=== PATIENT | female | born 1985 | race Two or more races ===

== ENCOUNTER 2024-10-03 13:48 | Inpatient (IN) | payer MEDICAID, OTHER ==
[~2024-10-03] VITALS: Ht 170.2 cm; Wt 82.0 kg
[2024-10-03] MEDS: SODIUM CHLORIDE 0.9% 1,850 ML IV ONE (14:30)
--- NOTE | 2024-10-03 14:37 | ED.PDOC ---
Altered Mental Status HPI Comments 39-year-old female with PMHx Colon Cancer brought in by EMS presents with a chief complaint of ALOC. Per EMS, family called due to patient being A/Ox1 and normally at baseline is A/Ox4. Patient is not able to stand or walk but normally is able to. Patient was hypotensive per EMS, and after 500mL of NS was only BP at 70/40. Patient was found to be tachycardic at 141 with some PVCs. Patient is alert and awake, but not answering any questions at this time. 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 Family History Family History: Pt Confused Social History Smoker: Pt Confused Alcohol: Unobtainable Drugs: Pt Confused Lives In: Home Constitutional: denies: chills, diaphoresis, fatigue, fever, malaise, sweats, weakness, others EENTM: denies: blurred vision, double vision, ear bleeding, ear discharge, ear drainage, ear pain, ear ringing, eye pain, eye redness, hearing loss, mouth pain, mouth swelling, nasal discharge, nose bleeding, nose congestion, nose pain, photophobia, tearing, throat pain, throat swelling, voice changes, others Respiratory: denies: cough, hemoptysis, orthopnea, SOB at rest, shortness of breath, SOB with excertion, stridor, wheezing, others Cardiovascular: denies: chest pain, dizzy spells, diaphoresis, Dyspnea on exertion, edema, irregular heart beat, left arm pain, lightheadedness, palpitations, PND, syncope, others Gastrointestinal: denies: abdomen distended, abdominal pain, blood streaked bowels, constipated, diarrhea, dysphagia, difficulty swallowing, hematemesis, melena, nausea, poor appetite, poor fluid intake, rectal bleeding, rectal pain, vomiting, others Genitourinary: denies: abnormal vagina bleeding, burning, dyspareunia, dysuria, flank pain, frequency, hematuria, incontinence, pain, , vagina discharge, urgency, others Neurological: denies: dizziness, fainting, headache, left sided numbness, left sided weakness, numbness, paresthesia, pre-existing deficit, right sided numbness, right sided weakness, seizure, speech problems, tingling, tremors, w eakness, others Musculoskeletal: denies: back pain, gout, joint pain, joint swelling, muscle pain, muscle stiffness, neck pain, others Integumetry: denies: bruises, change in color, change in hair/nails, dryness, laceration, lesions, lumps, rash, wounds, others Allergic/Immunocompromised: denies: Difficulty Healing, Frequent Infections, Hives, Itching, others Hematologic/Lymphatic: denies: anemia, blood clots, easy bleeding, easy bruising, swollen glands, others Endocrine: denies: excessive hunger, excessive sweating, excessive thirst, excessive urination, flushing, intolerance to cold, intolerance to heat, unexplained weight gain, unexplained weight loss, others Psychiatric: denies: anxiety, bipolar disorder, depression, hopeless, panic disorder, schizophrenia, sleepless, suicidal, others Unable to Obtain due to: Altered Mental Status All Other Systems: Reviewed and Negative Physical Exam General Appearance: Moderate Distress, Normal HEENT: Normal ENT Inspection, Pharynx Normal, TMs Normal Neck: Full Range of Motion, Non-Tender, Normal, Normal Inspection Respiratory: Chest Non-Tender, Lungs Clear, No Accessory Muscle Use, No Respiratory Distress, Normal Breath Sounds Cardiovascular: No Edema, No JVD, No Murmur, No Gallop, Tachycardia Breast Exam: Deferred Gastrointestinal: No Organomegaly, Non Tender, No Pulsatile Mass, Normal Bowel Sounds, Soft, Other (ILEOSTOMY IN PLACE) Genitalia: Deferred Pelvic: Deferred Rectal: Deferred Extremities: No calf tenderness, Normal capillary refill, Normal inspection, Normal range of motion, Non-tender, Pedal edema (TRACE) Musculoskeletal : Apperance: Normal Neurologic: Alert, Disoriented, Other (AWAKE, ALERT, BUT NOT ANSWERING QUESTI ONS) Cerebellar Function: Normal Reflexes: Normal Skin: Dry, Mottled, Warm Lymphatic: No Adenopathy EKG EKG : Comments ATRIAL FIBRILLATION RATE OF 151, NO SIGNIFICANT ST CHANGES Was a procedure done? Was a procedure done?: No Differential Diagnosis (ALOC) Differential Diagnosis: Dehydration, Hypoglycemia, Encephalopathy, Sepsis, Closed Head Injury Other Differential Diagnosis Metastases to the brain, dehydration, electrolyte abnormality, metastases, septic shock, elevated ammonia levels, severe dehydration, X-Ray, Labs, Meds, VS Vital Signs Date Time Temp Pulse Resp B/P (MAP) Pulse Ox O2 Delivery O2 Flow Rate FiO2 10/03/24 18:44 97/67 10/03/24 17:52 59/43 10/03/24 17:47 48/27 10/03/24 17:44 89/51 10/03/24 17:36 89/51 10/03/24 17:32 79/49 10/03/24 17:32 134 28 79/48 (58) 10/03/24 17:26 88/31 10/03/24 17:21 61/37 10/03/24 17:17 42/33 10/03/24 17:15 138 28 42/33 (36) 10/03/24 17:09 53/30 10/03/24 17:04 65/38 10/03/24 17:03 136 30 65/38 (47) 10/03/24 16:32 127 28 103/70 (81) 10/03/24 16:30 89/52 10/03/24 16:02 98/45 10/03/24 16:01 127 10/03/24 15:58 128 28 59/38 (45) 10/03/24 15:49 143 28 112/43 10/03/24 15:36 Nasal Cannula* 2 28 10/03/24 15:32 151 10/03/24 15:29 143 28 112/43 (66) 10/03/24 15:14 142 30 95/58 (70) 10/03/24 14:58 157 28 88/66 (73) 10/03/24 14:20 97.5 63 20 84/52 (63) 94 10/03/24 13:55 141 Lab Test 10/03/24 18:45 10/03/24 18:40 10/03/24 17:57 10/03/24 16:58 Range/Units Lactic Acid Level Pending Troponin I High Sensitivity Pending 7 </=34 ng/L POC Glucose 183 H 70-106 mg/dl Test 10/03/24 14:45 Range/Units White Blood Count 8.7 4.4-10.8 10^3/uL Red Blood Count 3.69 L 4.0-5.20 10^6/uL Hemoglobin 12.0 L 12.2-16.2 g/dL Hematocrit 36.3 36.0-46.0 % Mean Corpuscular Volume 98.3 80.0-100.0 fL Mean Corpuscular Hemoglobin 32.5 H 28.0-32.0 pg Mean Corpuscular Hemoglobin Concent 33.0 32.0-36.0 g/dL Red Cell Distribution Width 18.1 H 11.8-14.3 % Platelet Count 97 L 140-450 10^3/uL Mean Platelet Volume 10.3 6.9-10.8 fL Neutrophils (%) (Auto) 37.0-80.0 % Lymphocytes (%) (Auto) 10.0-50.0 % Monocytes (%) (Auto) 0.0-12.0 % Basophils (%) (Auto) 0.0-2.0 % Neutrophils # (Auto) 1.6-8.6 10 ^3/uL Lymphocytes # (Auto) 0.4-5.4 10 ^3/uL Monocytes # (Auto) 0-1.3 10 ^3/uL Differential Total Cells Counted 100.0 100 Neutrophils % (Manual) 90 H 37.0-80.0 Band Neutrophils % (Manual) 0 Lymphocytes % (Manual) 1 L 10.0-50.0 Monocytes % (Manual) 9 0-12 Eosinophils % (Manual) 0 0-7 Basophils % (Manual) 0 0.0-2.0 Metamyelocytes % (manual) 0 Myelocytes % (Manual) 0 Promyelocytes % (Manual) 0 Blast Cells % (Manual) 0 Nucleated Red Blood Cells 3.0 % Reactive Lymphocytes 0 Platelet Estimate Decrea Large Platelets Few Sodium Level 120 L 136-145 mmol/L Potassium Level 3.8 3.5-5.1 mmol/L Chloride Level 85 L 98-107 mmol/L Carbon Dioxide Level < 10 *L 20-31 mmol/L Anion Gap 25.86238 H 5-15 Blood Urea Nitrogen 97 *H 9-23 mg/dL Creatinine 7.83 H 0.550-1.02 mg/dL Glomerular Filtration Rate Calc 6 >90 mL/min BUN/Creatinine Ratio 12.4 10.0-20.0 Serum Glucose 63 L 74-106 mg/dL Lactic Acid Level 14.0 *H 0.4-2.0 mmol/L Calcium Level 9.2 8.7-10.4 mg/dL Total Bilirubin 4.7 H 0.2-1.0 mg/dL Aspartate Amino Transferase (AST) 611 H 13-40 U/L Alanine Aminotransferase (ALT) 290 H 7-40 U/L Alkaline Phosphatase 553 H 46-116 U/L Troponin I High Sensitivity 4 </=34 ng/L Total Protein 6.2 5.7-8.2 g/dL Albumin 3.1 L 3.2-4.8 g/dL Beta HCG, Quantitative 0.7 L 1.5-4.2 mIU/mL Current Medications Medications (Trade) Dose Ordered Sig/Ana Route Start Time Stop Time Status Last Admin Sodium Chloride 1,850 ml @ 1,850 mls/hr ONCE ONCE IV 10/03/24 14:30 10/03/24 15:29 DC 10/03/24 14:30 Piperacillin Sod/ Tazobactam Sod 100 ml @ 100 mls/hr ONCE ONCE IV 10/03/24 16:30 10/03/24 17:29 DC 10/03/24 17:51 Sodium Bicarbonate 50 ml ONCE ONCE IV 10/03/24 17:15 10/03/24 17:16 DC 10/03/24 17:20 Dextrose 50 ml ONCE ONCE IV 10/03/24 17:15 10/03/24 17:16 DC 10/03/24 17:20 Morphine Sulfate 2 mg ONCE ONCE IV 10/03/24 15:45 10/03/24 17:12 DC 10/03/24 15:49 Lorazepam (Ativan Inj) 1 mg ONCE ONCE IV 10/03/24 15:45 10/03/24 17:12 DC 10/03/24 15:49 Norepinephrine Bitartrate 250 ml @ 3.75 mls/hr Q24H IV 10/03/24 17:15 10/03/24 16:02 Vasopressin 20 units/Sodium Chloride 100 ml @ 9 mls/hr Q11H7M IV 10/03/24 17:30 10/03/24 17:44 Vancomycin HCl 250 ml @ 200 mls/hr ONCE ONCE IV 10/03/24 18:30 1/24/25 19:44 10/03/24 18:47 39-year-old female presents here with hypotension and ALOC. Patient was immediately evaluated by myself. She presents here in extremely critical status. Patient is a known history of metastatic colon cancer. On my evaluation she was agitated and awake able to answer some questions with nodding only. Heart rate was in the 140s. Concern for atrial fibrillation however she continued to go in and out of atrial fibrillation versus sinus tachycardia. Her lips are very dry. Patient was given 500 cc NS bolus by medics and was given another 2000 cc bolus the pressure bag in the ER. While in the ER patient became increasingly more agitated crying screaming. Family requesting pain medications and antianxiety medications. However patient's blood pressure was found to be in the 60s upon her arrival. Her blood pressure did improve to 112 systolic after the fluids. At that time family understood that pain medications and antianxiety NKDA medications will drop her blood pressure however they were agreeable to this given the amount of suffering she was having. Patient was given Ativan min mg IV and also morphine 2 mg IV. This did improve her agitation however her blood pressure did precipitate easily drop. After the 2 L bolus was finished, blood pressure remained low at 64 systolic and patient was started on Levophed. Unable to give Patient does have a Port-A-Cath site to her right chest which was accessed successfully. Patient was also written for vancomycin and Zosyn by myself. Patient's mental status continued to deteriorate. Multiple discussions about patient's critical status, code status was made by myself with the , [id number] and then [id number]. Patient required multiple re-evaluations by myself and significant amount of time was spent directly at bedside with the patient and family discussing next steps. Given patient's mental condition deteriorated, end-tidal CO2 only revealed output of 12. We discussed possible intubation however the decision was made to break the patient DNR and DNI. Blood work does demonstrate significant lab abnormalities including low sodium of 120, lactic acid of 14, anion gap of 25 elevated liver enzymes. Patient has required another pressor to be given we have started her on vasopressin. We attempted an ABG however RT unable to obtain. At this time patient's blood glucose has dropped to 38. Patient has been started on D10 drip. At this time I am continuously monitoring patient's status. Hospitalist team has been consulted. Family is aware patient's critical status and she may have a code blue at anytime. Time of 1ST Reevaluation: 14:50 Reevaluation 1ST: Unchanged Time of 2ND Reevaluation: 17:45 (DNR PAPER SIGNED) Reevaluation 2ND: Unchanged Patient Education/Counseling: Diagnosis, Treatment, Prognosis Family Education/Counseling: Diagnosis, Treatment, Prognosis Departure 1 Departure Time of Disposition: 17:41 Impression: Primary Impression: Metastatic colon cancer to liver Additional Impressions: Hyponatremia Severe hypotension Lactic acidosis Hypoglycemia Atrial fibrillation with RVR Disposition: ADMITTED INPATIENT Admit to: ICU Condition: Critical Critical Care Note Critical Care Time?: Yes (>90min-critical care time only) Critical care comment: 180 minutes. TIME SPENT AT BEDSIDE WITH THE PATIENT EVALUATING THE PATIENT, SPEAKING TO FAMILY, SPEAKING TO NURSING STAFF, ADDRESSING CODE STATUS, MULTIPLE RE-EVALUATIONS OF THE PATIENT. CONCERN FOR IMMEDIATE DETERIORATION. Stability Stability form required: No Heart Score Heart Score: Heart Score Response (Comments) Value History N/A 0 EKG N/A 0 Age N/A 0 Risk Factors N/A 0 Troponin N/A 0 Total 0 I personally scribed for TAQUERIA LOJA MD ([email or web address]) on 10/03/24 at 14:37. Electronically submitted by Lyle Estrada ([email or web address]). I personally scribed for TAQUERIA LOJA MD ([email or web address]) on 10/03/24 at 16:53. Electronically submitted by Lyle Estrada ([email or web address]). I personally scribed for TAQUERIA LOJA MD ([email or web address]) on 10/03/24 at 17:41. Electronically submitted by Lyle Estrada ([email or web address]). TAQUERIA LOJA MD Oct 03, 2024 14:37
[2024-10-03 15:36] LABS: Anion Gap 25.00001 (5-15); BUN/Creatinine Ratio 12.4 (10.0-20.0); Calcium 9.2 mg/dL (8.7-10.4); Potassium 3.8 mmol/L (3.5-5.1); Total Protein 6.2 g/dL (5.7-8.2)
[2024-10-03 15:38] LABS: Hematocrit 36.3 % (36.0-46.0); Mean Corpuscular Hemoglobin 32.5 pg (28.0-32.0); Mean Corpuscular Volume 98.3 fL (80.0-100.0); Platelet Count (auto) 97 10^3/uL (140-450); Red Blood Cells 3.69 10^6/uL (4.0-5.20); Red Cell Distribution Width 18.1 % (11.8-14.3); White Blood Cell 8.7 10^3/uL (4.4-10.8)
[2024-10-03 15:45] LABS: Band Neutrophils % (manual) 0; Basophils % (manual) 0 (0.0-2.0); Blast Cells 0; Eosinophils % (manual) 0 (0-7); Metamyelocytes % 0; Myelocytes % 0; Promyelocytes % 0; Reactive Lymphocytes 0
[2024-10-03] MEDS: MORPHINE SULFATE INJ 2 MG/ml SYRG ONE (15:47)
[2024-10-03] MEDS: LORazepam 2MG/ML-1ML VIAL ONE (15:48)
[2024-10-03] MEDS: MORPHINE SULFATE INJ 2 MG/ml SYRG IV ONE ×2 (15:49→20:04)
[2024-10-03] MEDS: LORazepam 2MG/ML-1ML VIAL IV ONE (15:49)
[2024-10-03 15:51] LABS: Alanine Aminotransferase 290 U/L (7-40); Albumin 3.1 g/dL (3.2-4.8); Alkaline Phosphatase 553 U/L (46-116); Aspartate Aminotransferase 611 U/L (13-40); Bilirubin, Total 4.7 mg/dL (0.2-1.0); Chloride 85 mmol/L (98-107); Glucose 63 mg/dL (74-106); Sodium 120 mmol/L (136-145)
[2024-10-03 15:54] LABS: Blood Urea Nitrogen 97 mg/dL (9-23); Carbon Dioxide < 10 mmol/L (20-31)
[2024-10-03] MEDS: NOREPINEPHRINE 8 MG/250ML KIT 250 ML IV ONE (16:00)
[2024-10-03] MEDS: NOREPINEPHRINE 8 MG/250ML KIT 250 ML IV SCH (16:02)
[2024-10-03 16:03] LABS: Lymphocytes % (manual) 1 (10.0-50.0); Monocytes % (manual) 9 (0-12)
[2024-10-03 16:04] LABS: Large Platelets FEW; Platelet Estimate Decrea
--- NOTE | 2024-10-03 16:34 | ECG ---
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
[2024-10-03] MEDS: DEXTROSE (50%) 50ML SYRG IV ONE (17:20)
[2024-10-03] MEDS: SODIUM BICARB 8.4% 50Meq/50ml SYR Vial IV ONE (17:20)
[2024-10-03] MEDS: VASOPRESSIN 20 UNIT/ML ONE (17:38)
[2024-10-03] MEDS: VASOPRESSIN 20 UNITS in SODIUM CHL 0.9% 99 ML IV SCH (17:44)
[2024-10-03] MEDS: PIPERACILLIN-TAZO 4.5GM 100 ML IV ONE (17:51)
[2024-10-03] MEDS ORDERED: VANCOMYCIN PER PHARMACY 0 MG IV SCH (18:30)
[2024-10-03] MEDS: VANCOMYCIN 1.25GM/250ML 250 ML IV ONE (18:47)
[2024-10-03] MEDS: EPINEPHrine HCL 250 ML IV ONE (19:15)
[2024-10-03 19:30] VITALS: O2SAT 97
[2024-10-03] MEDS: SODIUM BICARB 50mEq/50ml Vial 100 ML in D5W 5% 1,000 ML IV ONE (19:57)
[2024-10-03] MEDS ORDERED: ACETAMINOPHEN 325 MG TAB PO PRN (20:00)
[2024-10-03] MEDS ORDERED: DEXTROSE (50%) 50ML SYRG IV PRN (20:00)
[2024-10-03] MEDS ORDERED: DOCUSATE SOD 100 MG CAP PO PRN (20:00)
[2024-10-03] MEDS: dilTIAZem 25 MG/5 ML VIAL IV ONE (20:14)
[2024-10-03] MEDS ORDERED: IBUPROFEN 400 MG TAB PO PRN (20:30)
[2024-10-03] MEDS: ACCU-CHEK COMFORT CURVE STRIP VI SCH (21:09)
[2024-10-03] MEDS: InsuLIN REG 1unit/0.01ml Soln (100units/ml) SC SCH (21:10)
--- NOTE | 2024-10-03 21:49 | DVHHP2 ---
History of Present Illness Reason for Visit: Severe hypotension History of Present Illness The patient is a 39-year-old female DNR/DNI with past medical history of colon cancer with Mets presented to [facility] ED for evaluation of altered level of consciousness. Patient's family reports she suddenly became altered, alert, oriented x1 from baseline x4, unable to walk or stand, getting worse that EMS were called. Patient was seen and evaluated in the ED, laboratory data shows WBC 8.7, platelets 97, sodium 120, potassium 3.8, BUN 97, creatinine 7.83, GFR six, glucose 63, anion gap 25, albumin 3.1, troponin 4, AST 611, ALT 290, blood pressure 84/52 trending up to 126/56, pulse 157 trending down to 116, temperature 97.6 F, O2 saturation 94% on oxygen. Patient was started on vasopressin drip, started on IV antibiotic regimen Zosyn, please see medication orders section in the computer. On my assessment, family member at bedside, patient remains altered, no diaphoresis, currently on oxygen, no diarrhea, no nausea, no vomiting, no fever, no chills. Patient was admitted for further evaluation and medical management. Past Medical History Colon cancer Past Surgical History Pt Confused Family History Reviewed, noncontributory to the management of this case. Past Social History The patient lives at home, denies smoking, alcohol or illicit drugs abuse. Review of Systems Constitutional: Yes: Weakness; No: Fever, Chills, Sweats, Malaise, Other Eyes: Vision change; No: Pain, Conjunctivae inflammation, Eyelid inflammation, Other, Redness ENT: No: Ear pain, Ear discharge, Nose pain, Nose discharge, Nose congestion, Mouth pain, Mouth swelling, Throat pain, Throat swelling, Other Respiratory: Shortness of breath; No: Cough, Dry, SOB with excertion, Wheezing, Hemoptysis, Pleuritic Pain, Sputum, Wheezing, Other Cardiovascular: No: Chest Pain, Palpitations, Orthopnea, Paroxysmal Noc. Dyspnea, Edema, Lt Headedness, Other Gastrointestinal: Abdominal Pain; No: Nausea, Vomiting, Diarrhea, Constipation, Melena, Hematochezia, Other Genitourinary: No Dysuria, No Frequency, No Incontinence, No Hematuria, No Retention, No Other Musculoskeletal: No: other, neck pain, shoulder pain, arm pain, back pain, hand pain, leg pain, foot pain Skin: No: Rash, Lesions, Jaundice, Bruising, Other Neurological: No: Weakness, Numbness, Incoordination, Change in speech, Confusion, Seizures, Other Allergies: Coded Allergies: NO KNOWN ALLERGIES (Unverified , 10/03/24) Medications Current Medications Medications Dose Ordered Sig/Ana Route Start Time Stop Time Status Last Admin Dose Admin Piperacillin Sod/ Tazobactam Sod 100 ml @ 25 mls/hr Q12HR IV 10/04/24 00:00 Norepinephrine Bitartrate 250 ml @ 3.75 mls/hr Q24H IV 10/03/24 17:15 10/03/24 16:02 3.75 MLS/HR Vasopressin 20 units/Sodium Chloride 100 ml @ 9 mls/hr Q11H7M IV 10/03/24 17:30 10/03/24 17:44 9 MLS/HR Vancomycin HCl 0 ml @ 0 mls/hr UD IV 10/03/24 18:30 Famotidine 20 mg Q2D IV 10/03/24 22:00 Diagnostic Test (Pha) 1 strip IQ4HR 10/03/24 20:00 10/03/24 21:09 1 STRIP Insulin Human Regular IQ4HR SC 10/03/24 20:00 10/03/24 21:10 2 UNITS Dextrose 50 ml UD PRN IV 10/03/24 20:00 Sodium Chloride 10 ml Q8HR IV 10/03/24 22:00 Ondansetron HCl 4 mg Q4HP PRN IV 10/03/24 20:00 Docusate Sodium 100 mg BIDPRN PRN PO 10/03/24 20:00 Ibuprofen 400 mg Q6HP PRN PO 10/03/24 20:30 Morphine Sulfate 1 mg Q4HPRN PRN IV 10/03/24 21:30 UNV Exam Vital Signs Vital Signs Date Time Temp Pulse Resp B/P (MAP) Pulse Ox O2 Delivery O2 Flow Rate FiO2 10/03/24 20:45 82 22 92/74 (80) 100 10/03/24 19:30 Non-Rebreather 15 N/A 10/03/24 14:20 97.5 General Appearance: Alert, Cooperative, No acute distress, Other (Oriented x1) HEENT: Atraumatic, PERRLA, EOMI, Mucous membr. moist/pink Respiratory: Normal air movement, Other (Diminished breath sounds) Cardiovascular: Normal S1, Normal S2, No murmurs, Other (Irregular rate and rhythm) Abdominal: Normal bowel sounds, Soft, No hepatospenomegaly, No masses Extremities: No clubbing, No cyanosis, No edema, Normal pulses, No tenderness/swelling Skin: No rashes, No breakdown, No significant lesion Neuro: Normal tone, Reflexes 2+, Other (Generalized weakness) Psych/Mental Status: Mood NL, Other (Altered mental status) Labs/Xrays Labs Test 10/03/24 21:02 10/03/24 18:45 10/03/24 18:40 10/03/24 14:45 Range/Units POC Glucose 157 H 70-106 mg/dl Lactic Acid Level 15.5 *H 0.4-2.0 mmol/L Ammonia 147 *H 11-32 umol/L Troponin I High Sensitivity 8 </=34 ng/L White Blood Count 8.7 4.4-10.8 10^3/uL Red Blood Count 3.69 L 4.0-5.20 10^6/uL Hemoglobin 12.0 L 12.2-16.2 g/dL Hematocrit 36.3 36.0-46.0 % Mean Corpuscular Volume 98.3 80.0-100.0 fL Mean Corpuscular Hemoglobin 32.5 H 28.0-32.0 pg Mean Corpuscular Hemoglobin Concent 33.0 32.0-36.0 g/dL Red Cell Distribution Width 18.1 H 11.8-14.3 % Platelet Count 97 L 140-450 10^3/uL Mean Platelet Volume 10.3 6.9-10.8 fL Neutrophils (%) (Auto) 37.0-80.0 % Lymphocytes (%) (Auto) 10.0-50.0 % Monocytes (%) (Auto) 0.0-12.0 % Basophils (%) (Auto) 0.0-2.0 % Neutrophils # (Auto) 1.6-8.6 10 ^3/uL Lymphocytes # (Auto) 0.4-5.4 10 ^3/uL Monocytes # (Auto) 0-1.3 10 ^3/uL Differential Total Cells Counted 100.0 100 Neutrophils % (Manual) 90 H 37.0-80.0 Band Neutrophils % (Manual) 0 Lymphocytes % (Manual) 1 L 10.0-50.0 Monocytes % (Manual) 9 0-12 Eosinophils % (Manual) 0 0-7 Basophils % (Manual) 0 0.0-2.0 Metamyelocytes % (manual) 0 Myelocytes % (Manual) 0 Promyelocytes % (Manual) 0 Blast Cells % (Manual) 0 Nucleated Red Blood Cells 3.0 % Reactive Lymphocytes 0 Platelet Estimate Decrea Large Platelets Few Sodium Level 120 L 136-145 mmol/L Potassium Level 3.8 3.5-5.1 mmol/L Chloride Level 85 L 98-107 mmol/L Carbon Dioxide Level < 10 *L 20-31 mmol/L Anion Gap 25.80994 H 5-15 Blood Urea Nitrogen 97 *H 9-23 mg/dL Creatinine 7.83 H 0.550-1.02 mg/dL Glomerular Filtration Rate Calc 6 >90 mL/min BUN/Creatinine Ratio 12.4 10.0-20.0 Serum Glucose 63 L 74-106 mg/dL Calcium Level 9.2 8.7-10.4 mg/dL Total Bilirubin 4.7 H 0.2-1.0 mg/dL Aspartate Amino Transferase (AST) 611 H 13-40 U/L Alanine Aminotransferase (ALT) 290 H 7-40 U/L Alkaline Phosphatase 553 H 46-116 U/L Total Protein 6.2 5.7-8.2 g/dL Albumin 3.1 L 3.2-4.8 g/dL Beta HCG, Quantitative 0.7 L 1.5-4.2 mIU/mL Test 10/03/24 14:44 Range/Units B-Type Natriuretic Peptide 157.61 0-100 pg/mL Assessment/Plan Assessment/Plan Metastatic colon cancer to liver Hyponatremia Severe hypotension Lactic acidosis Generalized weakness Hypoglycemia Atrial fibrillation with RVR Elevated liver enzymes Plan 1. Admit to intensive care unit 2. Breathing treatment 3. Pain control management 4. IV antibiotic management 5. Management of fluids and electrolytes 6. Consultation for cardiology/nephrology 7. Diagnostic test chest x-ray 8. DVT prophylaxis-on SCDs 9. Repeat labs CBC, CMP in a.m. 10. Home medication reviewed and reconciled 11. Continue with current medical management 12. Treatment plan discussed with patient/family and RN. Patient will need reinstatement of information given mental status, family verbalized understanding. Plan discussed with: Patient, Other (RN) My Orders Orders - SILVESTRE FONTANA DNP Procedure Category Date Status Time *Dr. Anjel Herron CONS 10/03/24 Transmitted -[place] 19:57 Consistent DIET 10/04/24 Transmitted Carb(Ccho)Diabetes Breakfast Famotidine Injection PHA 10/03/24 In Process (Pepcid Injection) 22:00 * [facility] Therapy Counselor CONS 10/03/24 Transmitted 19:57 * Cardiology Consult CONS 10/03/24 Transmitted 19:57 Glucose Blood PHA 10/03/24 In Process (Accu-Chek Comfort 20:00 Insulin R (Human) PHA 10/03/24 In Process (Insulin R) 20:00 Dextrose 50% Syringe PHA 10/03/24 In Process 20:00 Allergies NIDHI 10/03/24 In Process 19:57 Code Status CODE 10/03/24 Transmitted 19:57 Sodium Chloride Lock PHA 10/03/24 In Process (Saline Lock Ns) 22:00 Oxygen Per Hour RT 10/03/24 Transmitted 19:57 Ondansetron Hcl PHA 10/03/24 In Process (Zofran) 20:00 Docusate Sodium PHA 10/03/24 In Process Capsule (Colace 20:00 Fall Risk Precautions NIDHI 10/03/[address] 19:57 Complete Blood Count LAB 10/04/24 Verified 04:00 Comprehensive LAB 10/04/24 Verified Metabolic Panel 04:00 Echo 2d Mode Cardiac US 10/03/24 Logged DOP 19:57 Condition: Serious NIDHI 10/03/24 In Process 19:57 Sequential NIDHI 10/03/24 In Process Compression Device Ibuprofen Tablet PHA 10/03/24 In Process (Motrin Tablet) 20:30 Morphine Sulfate PHA 10/03/24 Logged Injection 21:30 Admit ADMIT 10/03/24 Verified 21:48 Nitroglycerin PHA 10/03/24 Verified Sublingual (Ntrostat 22:00 Morphine Sulfate PHA 10/03/24 Verified Injection 22:00 Notify Of Changes NIDHI 10/03/24 Verified From Base 21:48 Anger Control Counselor For [facility] 10/03/24 Verified 24 Hours 21:48 Emergency Dysrhythmia NIDHI 10/03/24 Verified Protocol 21:48 Rhythm Strips Once NIDHI 10/03/24 Verified Every Shift 21:48 Oxygen By Nasal RT 10/03/24 Verified Cannula 21:48 Problem List: (1) Metastatic colon cancer to liver (2) Atrial fibrillation with RVR (3) Severe hypotension (4) Hyponatremia (5) Hypoglycemia (6) Lactic acidosis (7) Generalized weakness (8) Acute abdominal pain (9) Elevated liver enzymes Date of Service: Oct 03, 2024 Billing Provider: SILVESTRE FONTANA DNP Common Visit Codes: [id number] INP/OBS CARE (HIGH) SILVESTRE FONTANA DNP Oct 03, 2024 21:49
[2024-10-03] MEDS: SODIUM CHLOR 0.9% PF (SALINE LOCK) 10ML VIAL/SYR IV SCH (22:00)
[2024-10-03] MEDS ORDERED: PIPERACILLIN-TAZO 4.5GM 100 ML IV SCH (22:00)
[2024-10-03] MEDS ORDERED: VANCOMYCIN 1GM/250ML KIT 200 ML IV SCH (22:00)
[2024-10-03] MEDS ORDERED: MORPHINE SULFATE INJ 2 MG/ml SYRG IV PRN (22:00)
[2024-10-03] MEDS ORDERED: NITROGLYCERIN 0.4 MG SL TAB SL PRN (22:00)
[2024-10-03 23:00] VITALS: PULSE 111; RESP 20; O2SAT 99
[2024-10-03] MEDS: FAMOTIDINE (10MG/ML) 2ML VL IV SCH (23:26)
[2024-10-03] MEDS: DEXTROSE 10% 1,000 ML IV ONE (23:38)
[2024-10-04] MEDS: ONDANSETRON HCL 4 MG/2 ML VIAL IV PRN (01:11)
[2024-10-04] MEDS: MORPHINE SULFATE INJ 2 MG/ml SYRG IV PRN ×2 (01:11→04:37)
[2024-10-04] MEDS ORDERED: MORPHINE SULFATE 4 MG/ML SYR/VIAL IV PRN ×2 (01:30→01:45)
[2024-10-04] MEDS: LORazepam 2MG/ML-1ML VIAL IV PRN (01:49)
[2024-10-04] MEDS: PHENYLEPHRINE IV 250 ML IV SCH (03:26)
[2024-10-04] MEDS: PIPERACILLIN-TAZOB 3.375GM 100 ML IV SCH (04:20)
[2024-10-04] MEDS: HYDROMORPHONE HCL 1 MG/ML INJ IV PRN (06:36)
[2024-10-04] MEDS: INSULIN DRIP 100 UNIT/100ML 100 ML IV SCH (07:30)
[2024-10-04] MEDS ORDERED: ALBUTEROL SULF 2.5 MG/0.5ML(0.5%) NEB SOLN NEB ONE (07:30)
[2024-10-04] MEDS: ACCU-CHEK COMFORT CURVE STRIP VI SCH (07:30)
[2024-10-04] MEDS: InsuLIN REG 1unit/0.01ml Soln (100units/ml) IV ONE ×2 (07:30→12:56)
--- NOTE | 2024-10-04 08:11 | DVH ---
EXAM: CT Head Without Intravenous Contrast CLINICAL INDICATION: ALOC TECHNIQUE: Axial computed tomography images of the head/brain without intravenous contrast. This CT exam was performed using one or more of the following dose reduction techniques: automated exposure control, adjustment of the mA and/or kV according to patient size, and/or use of iterative reconstru ction technique. RADIATION DOSE: CTDlvol= 48.5 mGy, DLP= 878.31 mGy-cm COMPARISON: None FINDINGS: BRAIN AND EXTRA-AXIAL SPACES: Unremarkable. No significant white matter disease. No acute intracra nial hemorrhage, midline shift or mass effect. BONES/JOINTS: Unremarkable. No acute fracture. SOFT TISSUES: Unremarkable. SINUSES: Unremarkable as visualized. No acute sinusitis. MASTOID AIR CELLS: Unremarkable as visualized. No mastoid effusion. OTHER FINDINGS: If symptoms persist, further evaluation with MRI is recommended. . . . IMPRESSION: 1. No acute intracranial hemorrhage, midline shift or mass effect. 2. If symptoms persist, further evaluation with MRI is recommended. .
[2024-10-04] MEDS: ACETAMINOPHEN IV 1000 MG/100ML (10MG/ML) IV ONE (08:37)
[2024-10-04] MEDS: SODIUM BICARB 50mEq/50ml Vial 150 ML in D5W 5% 1,000 ML IV SCH (09:00)
--- NOTE | 2024-10-04 09:09 | DVHINCON2 ---
Date of service: Oct 04, 2024 Referring Physician Domingo Gloria, nurse practitioner Reason for Consultation Acute kidney injury History of Present Illness Patient is 39-year-old female with past medical history of metastatic colon cancer is admitted because altered level of consciousness on admission patient found to have elevated BUN creatinine nephrology is consulted for acute kidney injury Past Medical History Metastatic colon cancer Past Surgical History Unknown Allergies: Coded Allergies: NO KNOWN ALLERGIES (Unverified , 10/03/24) Current Medications Current Medications Medications (Trade) Dose Ordered Sig/Ana Route PRN Reason Start Time Stop Time Status Last Admin Vancomycin HCl 200 ml @ 200 mls/hr Q12HR IV 10/03/24 22:00 10/03/24 18:16 DC Piperacillin Sod/ Tazobactam Sod 100 ml @ 25 mls/hr Q8HR IV 10/03/24 22:00 10/03/24 16:29 DC Piperacillin Sod/ Tazobactam Sod 100 ml @ 25 mls/hr Q12HR IV 10/04/24 00:00 10/04/24 10:29 Norepinephrine Bitartrate 250 ml @ 3.75 mls/hr Q24H IV 10/03/24 17:15 10/03/24 16:02 Vasopressin 20 units/Sodium Chloride 100 ml @ 9 mls/hr Q11H7M IV 10/03/24 17:30 10/04/24 05:10 Vancomycin HCl 0 ml @ 0 mls/hr UD IV 10/03/24 18:30 Famotidine (Pepcid Injection) 20 mg Q2D IV 10/03/24 22:00 10/03/24 23:26 Diagnostic Test (Pha) (Accu-Chek Comfort Curve T) 1 strip IQ4HR 10/03/24 20:00 10/04/24 08:21 DC 10/04/24 05:07 Insulin Human Regular (InsuLIN R) IQ4HR SC 10/03/24 20:00 10/03/24 21:10 Dextrose 50 ml UD PRN IV Blood Sugar LESS THAN 60 10/03/24 20:00 10/04/24 08:21 DC Sodium Chloride (Saline Lock Ns) 10 ml Q8HR IV 10/03/24 22:00 10/04/24 06:06 Ondansetron HCl (Zofran) 4 mg Q4HP PRN IV NAUSEA / VOMITING 10/03/24 20:00 10/04/24 01:11 Docusate Sodium (Colace Capsule) 100 mg BIDPRN PRN PO FOR CONSTIPATION 10/03/24 20:00 Acetaminophen (Tylenol Tablet) 650 mg Q6HP PRN PO PAIN SCALE 1-3 OR TEMP>100.4 10/03/24 20:00 10/03/24 20:18 DC Ibuprofen (Motrin Tablet) 400 mg Q6HP PRN PO PAIN SCALE 1-3 OR TEMP>100.4 10/03/24 20:30 Morphine Sulfate 1 mg Q4HPRN PRN IV PAIN SCALE 7 THRU 10 10/03/24 21:30 10/04/24 01:40 DC 10/04/24 01:11 Nitroglycerin (Ntrostat Sublingual) 0.4 mg Q5MINP PRN SL FOR CHEST PAIN 10/03/24 22:00 Morphine Sulfate 2 mg Q30M PRN IV FOR CHEST PAIN 10/03/24 22:00 Lorazepam (Ativan Inj) 2 mg Q8HPRN PRN IV ANXIETY 10/04/24 01:30 10/04/24 01:49 Morphine Sulfate 4 mg Q2HPRN PRN IV SEVERE PAIN (7-10 PAIN SCALE) 10/04/24 01:30 10/04/24 01:42 DC Morphine Sulfate 4 mg Q2HPRN PRN IV SEVERE PAIN (7-10 PAIN SCALE) 10/04/24 01:45 10/04/24 03:06 DC Phenylephrine HCl 250 ml @ 30 mls/hr Q8H20M IV 10/04/24 02:45 10/04/24 03:26 Morphine Sulfate 2 mg Q2HPRN PRN IV SEVERE PAIN (7-10 PAIN SCALE) 10/04/24 03:00 10/04/24 05:24 DC 10/04/24 04:37 Hydromorphone HCl (Dilaudid Innjection) 0.5 mg Q2HPRN PRN IV PAIN SCALE 7 THRU 10 10/04/24 05:30 10/04/24 06:36 Insulin Human (Reg)/Sodium Chloride 100 ml @ 0.5 mls/hr Q24H IV 10/04/24 07:30 Diagnostic Test (Pha) (Accu-Chek Comfort Curve T) 1 strip Q90MIN 10/04/24 07:30 Dextrose 50 ml PRN PRN IV BG LESS Than 70 AND CALL MD 10/04/24 07:30 10/04/24 09:12 Sodium Bicarbonate 150 ml/Dextrose 1,150 ml @ 100 mls/hr [id number] IV 10/04/24 09:00 10/04/24 09:00 Review of Systems Can not be obtained H&P Exam Vital Signs/I&O Vital Sign Date Time Temp Pulse Resp B/P (MAP) Pulse Ox O2 Delivery O2 Flow Rate FiO2 10/04/24 10:15 99.9 106 20 117/66 (83) 99.9 10/04/24 08:45 66 10/03/24 23:00 Non-Rebreather 15 N/A Intake and Output 10/03/24 10/04/24 19:00 07:00 Intake Total 1950 ml 1675 ml Balance 1950 ml 1675 ml Intake IV Total 1950 ml 1675 ml Physical Exam Patient unresponsive on high flow oxygen Lungs decreased breath sounds bilaterally Cardiac exam regular rate and rhythm GI abdomen distended Extremity 1+ edema Neuro patient unresponsive Skin is mottled Labs/Diagnostic Data Labs/Diagnostic Data Laboratory Tests Test 10/04/24 09:09 10/04/24 08:33 10/04/24 08:00 10/04/24 07:27 Range/Units White Blood Count 15.8 H 4.4-10.8 10^3/uL Red Blood Count 3.08 L 4.0-5.20 10^6/uL Hemoglobin 10.0 L 12.2-16.2 g/dL Hematocrit 31.3 L 36.0-46.0 % Mean Corpuscular Volume 101.6 #H 80.0-100.0 fL Mean Corpuscular Hemoglobin 32.3 H 28.0-32.0 pg Mean Corpuscular Hemoglobin Concent 31.8 L 32.0-36.0 g/dL Red Cell Distribution Width 18.8 H 11.8-14.3 % Platelet Count 21 L 140-450 10^3/uL Mean Platelet Volume 10.4 6.9-10.8 fL Neutrophils (%) (Auto) 37.0-80.0 % Lymphocytes (%) (Auto) 10.0-50.0 % Monocytes (%) (Auto) 0.0-12.0 % Eosinophils (%) (Auto) 0.0-7.0 % Basophils (%) (Auto) 0.0-2.0 % Neutrophils # (Auto) 1.6-8.6 10 ^3/uL Lymphocytes # (Auto) 0.4-5.4 10 ^3/uL Monocytes # (Auto) 0-1.3 10 ^3/uL Eosinophils # (Auto) 0-0.8 10 ^3/uL Basophils # (Auto) 0-0.2 10 ^3/uL Differential Total Cells Counted 100 Immature Granulocytes % Neutrophils % (Manual) 37.0-80.0 Band Neutrophils % (Manual) Lymphocytes % (Manual) 10.0-50.0 Monocytes % (Manual) 0-12 Eosinophils % (Manual) 0-7 Basophils % (Manual) 0.0-2.0 Metamyelocytes % (manual) Myelocytes % (Manual) Promyelocytes % (Manual) Blast Cells % (Manual) Plasma Cells % (manual) Nucleated Red Blood Cells % Hypersegmented Neutrophils Reactive Lymphocytes Smudge Cells /100 WBC Toxic Granulation Toxic Vacuolation Dohle Bodies Saima Rods Platelet Estimate Clumped Platelets Large Platelets Giant Platelets Red Blood Cell Morphology Polychromasia Hypochromasia (manual) Poikilocytosis (manual) Basophilic Stippling Anisocytosis (manual) Microcytosis Macrocytosis Spherocytes Pappenheimer Bodies Sickle Cells Target Cells Tear Drop Cells Ovalocytes Stomatocytes [place] Bodies [place] Rings [place] Cells Rouleaux RBC Autoagglutination Schistocytes Sodium Level 136-145 mmol/L Potassium Level 3.5-5.1 mmol/L Chloride Level 98-107 mmol/L Carbon Dioxide Level 20-31 mmol/L Anion Gap 5-15 Blood Urea Nitrogen 9-23 mg/dL Creatinine 0.550-1.02 mg/dL Glomerular Filtration Rate Calc >90 mL/min BUN/Creatinine Ratio 10.0-20.0 Serum Glucose 54 L 74-106 mg/dL Calcium Level 8.7-10.4 mg/dL Total Bilirubin 0.2-1.0 mg/dL Aspartate Amino Transferase (AST) 13-40 U/L Alanine Aminotransferase (ALT) 7-40 U/L Alkaline Phosphatase 46-116 U/L Total Protein 5.7-8.2 g/dL Albumin 3.2-4.8 g/dL Random Vancomycin Level 5-10 ug/mL Urine Color Yellow Yellow Urine Clarity Turbid H Clear Urine pH 5.0 5.0-9.0 Urine Specific [place] 1.012 1.001-1.035 Urine Protein 1+ H Negative Urine Ketones Trace Negative Urine Blood 3+ H Negative /uL Urine Nitrite Negative Negative Urine Bilirubin Negative Negative Urine Urobilinogen Normal Negative mg/dL Urine Leukocyte Esterase Negative Negative /uL Urine RBC 23 0 - 4 /hpf Urine Microscopic WBC 9 H 0-5 /HPF Urine Squamous Epithelial Cells Few <5 /hpf Urine Bacteria Many H None Seen /hpf Urine Mucus Few None Seen Urine Glucose Trace Normal mg/dL POC Glucose 12 *L 70-106 mg/dl Test 10/04/24 07:24 10/04/24 05:48 10/04/24 05:45 10/04/24 05:07 Range/Units POC Glucose 350 H 91 70-106 mg/dl Test 10/04/24 00:22 10/03/24 21:02 10/03/24 18:45 10/03/24 18:40 Range/Units POC Glucose 122 H 157 H 70-106 mg/dl Lactic Acid Level 15.5 *H 0.4-2.0 mmol/L Ammonia 147 *H 11-32 umol/L Troponin I High Sensitivity 8 </=34 ng/L Test 10/03/24 17:57 10/03/24 16:58 10/03/24 14:45 10/03/24 14:44 Range/Units POC Glucose 183 H 70-106 mg/dl Troponin I High Sensitivity 7 4 </=34 ng/L White Blood Count 8.7 4.4-10.8 10^3/uL Red Blood Count 3.69 L 4.0-5.20 10^6/uL Hemoglobin 12.0 L 12.2-16.2 g/dL Hematocrit 36.3 36.0-46.0 % Mean Corpuscular Volume 98.3 80.0-100.0 fL Mean Corpuscular Hemoglobin 32.5 H 28.0-32.0 pg Mean Corpuscular Hemoglobin Concent 33.0 32.0-36.0 g/dL Red Cell Distribution Width 18.1 H 11.8-14.3 % Platelet Count 97 L 140-450 10^3/uL Mean Platelet Volume 10.3 6.9-10.8 fL Neutrophils (%) (Auto) 37.0-80.0 % Lymphocytes (%) (Auto) 10.0-50.0 % Monocytes (%) (Auto) 0.0-12.0 % Basophils (%) (Auto) 0.0-2.0 % Neutrophils # (Auto) 1.6-8.6 10 ^3/uL Lymphocytes # (Auto) 0.4-5.4 10 ^3/uL Monocytes # (Auto) 0-1.3 10 ^3/uL Differential Total Cells Counted 100.0 100 Neutrophils % (Manual) 90 H 37.0-80.0 Band Neutrophils % (Manual) 0 Lymphocytes % (Manual) 1 L 10.0-50.0 Monocytes % (Manual) 9 0-12 Eosinophils % (Manual) 0 0-7 Basophils % (Manual) 0 0.0-2.0 Metamyelocytes % (manual) 0 Myelocytes % (Manual) 0 Promyelocytes % (Manual) 0 Blast Cells % (Manual) 0 Nucleated Red Blood Cells 3.0 % Reactive Lymphocytes 0 Platelet Estimate Decrea Large Platelets Few Sodium Level 120 L 136-145 mmol/L Potassium Level 3.8 3.5-5.1 mmol/L Chloride Level 85 L 98-107 mmol/L Carbon Dioxide Level < 10 *L 20-31 mmol/L Anion Gap 25.35531 H 5-15 Blood Urea Nitrogen 97 *H 9-23 mg/dL Creatinine 7.83 H 0.550-1.02 mg/dL Glomerular Filtration Rate Calc 6 >90 mL/min BUN/Creatinine Ratio 12.4 10.0-20.0 Serum Glucose 63 L 74-106 mg/dL Lactic Acid Level 14.0 *H 0.4-2.0 mmol/L Calcium Level 9.2 8.7-10.4 mg/dL Total Bilirubin 4.7 H 0.2-1.0 mg/dL Aspartate Amino Transferase (AST) 611 H 13-40 U/L Alanine Aminotransferase (ALT) 290 H 7-40 U/L Alkaline Phosphatase 553 H 46-116 U/L Total Protein 6.2 5.7-8.2 g/dL Albumin 3.1 L 3.2-4.8 g/dL Beta HCG, Quantitative 0.7 L 1.5-4.2 mIU/mL B-Type Natriuretic Peptide 157.61 0-100 pg/mL Assessment Acute kidney injury secondary to hemodynamic mediated Hepatic encephalopathy Metastatic colon cancer Septic shock Metabolic acidosis Hyperkalemia Hyperglycemia Hypoglycemia Thrombocytopenia Recommendations Closely monitor fluid and electrolytes Avoid nephrotoxic medications Vieira catheter Strict I&Os IV fluids D5W with sodium bicarb drip IV pressors for blood pressure support Check urine electrolytes urinalysis and urine protein excretion Check kidney ultrasound Insulin sliding scale Poor prognosis Patient seen and examined by myself in the ER. I discussed my plan of care with the primary nurse at the bedside I would like to thank Domingo for the consult, will follow up Plan discussed with: Patient JAYDEN FARLEY MD Oct 04, 2024 09:09
[2024-10-04] MEDS: DEXTROSE (50%) 50ML SYRG IV PRN (09:12)
[2024-10-04 09:17] LABS: Urine Bacteria MANY /hpf (None Seen); Urine Blood 3+ /uL (Negative); Urine Clarity Turbid (Clear); Urine Color Yellow (Yellow); Urine Mucus FEW (None Seen); Urine Protein, UAD 1+ (Negative); Urine Specific Gravity 1.012 (1.001-1.035); Urine Squamous Epithelial Cell FEW /hpf (<5); Urine Urobilinogen Normal (Negative); Urine WBC 9 /HPF (0-5)
[2024-10-04 10:15] LABS: Hematocrit 31.3 % (36.0-46.0); Mean Corpuscular Hemoglobin 32.3 pg (28.0-32.0); Mean Corpuscular Hgb Conc. 31.8 g/dL (32.0-36.0); Mean Corpuscular Volume 101.6 fL (80.0-100.0); Platelet Count (auto) 21 10^3/uL (140-450); Red Blood Cells 3.08 10^6/uL (4.0-5.20); Red Cell Distribution Width 18.8 % (11.8-14.3); White Blood Cell 15.8 10^3/uL (4.4-10.8)
[2024-10-04 10:19] LABS: Basophils % (manual) 0 (0.0-2.0); Blast Cells 0; Eosinophils % (manual) 0 (0-7); Metamyelocytes % 0; Myelocytes % 0; Promyelocytes % 0
[2024-10-04 10:50] LABS: Anion Gap 23.00001 (5-15); BUN/Creatinine Ratio 11.7 (10.0-20.0)
--- NOTE | 2024-10-04 11:14 | DVH ---
INDICATION: sang TECHNIQUE: Multiple real-time sonographic images of the kidneys and bladder were obtained. COMPARISON: None FINDINGS: RIGHT kidney measures 10.8 cm in length. No hydronephrosis. LEFT kidney measures 9.9 cm in length. No hydronephrosis. No large intraluminal masses are seen in the bladder. Vieira catheter in the bladder. IMPRESSION: 1. Unremarkable examination.
[2024-10-04 11:15] LABS: Band Neutrophils % (manual) 22; Lymphocytes % (manual) 12 (10.0-50.0); Monocytes % (manual) 6 (0-12); Reactive Lymphocytes 1
[2024-10-04 11:16] LABS: Macrocytosis Slight; Platelet Estimate Decreased
[2024-10-04 11:18] LABS: Magnesium 3.1 mg/dL (1.6-2.6); Phosphorus 15.2 mg/dL (2.4-5.1)
[2024-10-04 11:19] LABS: Alanine Aminotransferase 1638 U/L (7-40); Albumin 2.2 g/dL (3.2-4.8); Alkaline Phosphatase 1055 U/L (46-116); Aspartate Aminotransferase > 6000 U/L (13-40); Bilirubin, Total 4.2 mg/dL (0.2-1.0); Calcium 7.9 mg/dL (8.7-10.4); Chloride 88 mmol/L (98-107); Sodium 121 mmol/L (136-145); Total Protein 4.6 g/dL (5.7-8.2)
[2024-10-04 11:20] LABS: Blood Urea Nitrogen 84 mg/dL (9-23); Carbon Dioxide < 10 mmol/L (20-31); Glucose 26 mg/dL (74-106); Potassium 5.8 mmol/L (3.5-5.1)
[2024-10-04 11:45] VITALS: PULSE 96; RESP 20; TEMP 100.2
[2024-10-04 12:25] LABS: Anion Gap 24.00001 (5-15)
[2024-10-04 12:30] LABS: BUN/Creatinine Ratio 11.7 (10.0-20.0)
[2024-10-04 12:33] LABS: Sodium 121 mmol/L (136-145)
--- NOTE | 2024-10-04 12:33 | DVHINCON2 ---
Date Seen: Oct 04, 2024 Referring Physician JONI Gloria Reason for Consultation Hypotension History of Present Illness This is a 39-year-old female patient who presents to the emergency room with chief complaint of altered level of mentation for two days. At the time of assessment, the patient remains confused. Patient's [id number] at bedside able to provide accurate history. Per the patient's [id number], the patient has been having generalized weakness and began showing signs of altered level of mentation approximately two days ago. She also reports nausea and vomiting. The patient was brought to the emergency room for further evaluation. Cardiology has now been consulted for hypotension. Initial twelve lead electrocardiogram reveals atrial fibrillation with rapid ventricular response. Significant past medical history includes colon cancer with metastasis and hepatitis-B. According to the patient's [id number], the patient is currently being treated at [facility] and is taking chemotherapy pills. Past Medical History Past medical history reviewed. No other significant than mentioned above. Past Surgical History Colostomy Port-A-Cath Family History Family history reviewed. Social History Denies the use of tobacco, alcohol or illicit drugs. Allergies: Coded Allergies: NO KNOWN ALLERGIES (Unverified , 10/03/24) Home Meds Home medications reviewed. Current Medications Current Medications Medications (Trade) Dose Ordered Sig/Ana Route PRN Reason Start Time Stop Time Status Last Admin Vancomycin HCl 200 ml @ 200 mls/hr Q12HR IV 10/03/24 22:00 10/03/24 18:16 DC Piperacillin Sod/ Tazobactam Sod 100 ml @ 25 mls/hr Q8HR IV 10/03/24 22:00 10/03/24 16:29 DC Piperacillin Sod/ Tazobactam Sod 100 ml @ 25 mls/hr Q12HR IV 10/04/24 00:00 10/04/24 10:29 Norepinephrine Bitartrate 250 ml @ 3.75 mls/hr Q24H IV 10/03/24 17:15 10/03/24 16:02 Vasopressin 20 units/Sodium Chloride 100 ml @ 9 mls/hr Q11H7M IV 10/03/24 17:30 10/04/24 05:10 Vancomycin HCl 0 ml @ 0 mls/hr UD IV 10/03/24 18:30 Famotidine (Pepcid Injection) 20 mg Q2D IV 10/03/24 22:00 10/03/24 23:26 Diagnostic Test (Pha) (Accu-Chek Comfort Curve T) 1 strip IQ4HR 10/03/24 20:00 10/04/24 08:21 DC 10/04/24 05:07 Insulin Human Regular (InsuLIN R) IQ4HR SC 10/03/24 20:00 10/03/24 21:10 Dextrose 50 ml UD PRN IV Blood Sugar LESS THAN 60 10/03/24 20:00 10/04/24 08:21 DC Sodium Chloride (Saline Lock Ns) 10 ml Q8HR IV 10/03/24 22:00 10/04/24 06:06 Ondansetron HCl (Zofran) 4 mg Q4HP PRN IV NAUSEA / VOMITING 10/03/24 20:00 10/04/24 01:11 Docusate Sodium (Colace Capsule) 100 mg BIDPRN PRN PO FOR CONSTIPATION 10/03/24 20:00 Acetaminophen (Tylenol Tablet) 650 mg Q6HP PRN PO PAIN SCALE 1-3 OR TEMP>100.4 10/03/24 20:00 10/03/24 20:18 DC Ibuprofen (Motrin Tablet) 400 mg Q6HP PRN PO PAIN SCALE 1-3 OR TEMP>100.4 10/03/24 20:30 Morphine Sulfate 1 mg Q4HPRN PRN IV PAIN SCALE 7 THRU 10 10/03/24 21:30 10/04/24 01:40 DC 10/04/24 01:11 Nitroglycerin (Ntrostat Sublingual) 0.4 mg Q5MINP PRN SL FOR CHEST PAIN 10/03/24 22:00 Morphine Sulfate 2 mg Q30M PRN IV FOR CHEST PAIN 10/03/24 22:00 Lorazepam (Ativan Inj) 2 mg Q8HPRN PRN IV ANXIETY 10/04/24 01:30 10/04/24 01:49 Morphine Sulfate 4 mg Q2HPRN PRN IV SEVERE PAIN (7-10 PAIN SCALE) 10/04/24 01:30 10/04/24 01:42 DC Morphine Sulfate 4 mg Q2HPRN PRN IV SEVERE PAIN (7-10 PAIN SCALE) 10/04/24 01:45 10/04/24 03:06 DC Phenylephrine HCl 250 ml @ 30 mls/hr Q8H20M IV 10/04/24 02:45 10/04/24 03:26 Morphine Sulfate 2 mg Q2HPRN PRN IV SEVERE PAIN (7-10 PAIN SCALE) 10/04/24 03:00 10/04/24 05:24 DC 10/04/24 04:37 Hydromorphone HCl (Dilaudid Innjection) 0.5 mg Q2HPRN PRN IV PAIN SCALE 7 THRU 10 10/04/24 05:30 10/04/24 06:36 Insulin Human (Reg)/Sodium Chloride 100 ml @ 0.5 mls/hr Q24H IV 10/04/24 07:30 Diagnostic Test (Pha) (Accu-Chek Comfort Curve T) 1 strip Q90MIN 10/04/24 07:30 Dextrose 50 ml PRN PRN IV BG LESS Than 70 AND CALL MD 10/04/24 07:30 10/04/24 09:12 Sodium Bicarbonate 150 ml/Dextrose 1,150 ml @ 100 mls/hr [id number] IV 10/04/24 09:00 10/04/24 09:00 Review of Systems Constitutional: Generalized weakness Ears, Nose, & Throat: No symptom reported Eyes: No symptom reported Neurological: Altered level of mentation Pulmonary/Respiratory: No symptoms reported Cardiovascular: No symptom reported Gastrointestinal: Nausea and vomiting Genitourinary: No symptom reported Musculoskeletal: No symptom reported Skin: No symptom reported Psychiatric: No symptom reported Endocrine: No symptom reported Hematologic/Lymphatic: No symptom reported Vital Signs Vital Signs Date Time Temp Pulse Resp B/P (MAP) Pulse Ox O2 Delivery O2 Flow Rate FiO2 10/04/24 11:45 100.2 96 20 92/73 (79) 100.2 10/04/24 08:45 66 10/03/24 23:00 Non-Rebreather 15 N/A Physical Exam General Appearance: Restless Pulmonary/Respiratory: Clear bilateral upper lobes Cardiovascular/Chest: Irregular rate and rhythm. Peripheral Pulses: 2+ Radial (R). 2+ Radial (L). Abdominal Exam: Normal bowel sounds. Ankle Exam: Negative ankle edema Lower extremities: Negative lower extremity edema Neuro/Mental Status: Confused, lethargic Thoughts/Psych: Deferred Appearance: No acute distress. Skin Exam: Mottled skin to bilateral lower extremities Labs/Diagnostic Data Labs Test 10/04/24 11:40 10/04/24 09:09 10/04/24 08:33 10/04/24 07:27 Range/Units White Blood Count 15.8 H 4.4-10.8 10^3/uL Red Blood Count 3.08 L 4.0-5.20 10^6/uL Hemoglobin 10.0 L 12.2-16.2 g/dL Hematocrit 31.3 L 36.0-46.0 % Mean Corpuscular Volume 101.6 #H 80.0-100.0 fL Mean Corpuscular Hemoglobin 32.3 H 28.0-32.0 pg Mean Corpuscular Hemoglobin Concent 31.8 L 32.0-36.0 g/dL Red Cell Distribution Width 18.8 H 11.8-14.3 % Platelet Count 21 L 140-450 10^3/uL Mean Platelet Volume 10.4 6.9-10.8 fL Neutrophils (%) (Auto) 37.0-80.0 % Lymphocytes (%) (Auto) 10.0-50.0 % Monocytes (%) (Auto) 0.0-12.0 % Eosinophils (%) (Auto) 0.0-7.0 % Basophils (%) (Auto) 0.0-2.0 % Neutrophils # (Auto) 1.6-8.6 10 ^3/uL Lymphocytes # (Auto) 0.4-5.4 10 ^3/uL Monocytes # (Auto) 0-1.3 10 ^3/uL Eosinophils # (Auto) 0-0.8 10 ^3/uL Basophils # (Auto) 0-0.2 10 ^3/uL Differential Total Cells Counted 100.0 100 Immature Granulocytes % Neutrophils % (Manual) 59 37.0-80.0 Band Neutrophils % (Manual) 22 Lymphocytes % (Manual) 12 10.0-50.0 Monocytes % (Manual) 6 0-12 Eosinophils % (Manual) 0 0-7 Basophils % (Manual) 0 0.0-2.0 Metamyelocytes % (manual) 0 Myelocytes % (Manual) 0 Promyelocytes % (Manual) 0 Blast Cells % (Manual) 0 Plasma Cells % (manual) Nucleated Red Blood Cells % Hypersegmented Neutrophils Reactive Lymphocytes 1 Smudge Cells /100 WBC Toxic Granulation Toxic Vacuolation Dohle Bodies Saima Rods Platelet Estimate Decreased Clumped Platelets Large Platelets Giant Platelets Red Blood Cell Morphology Polychromasia Hypochromasia (manual) Poikilocytosis (manual) Basophilic Stippling Anisocytosis (manual) Microcytosis Slight Macrocytosis Slight Spherocytes Pappenheimer Bodies Sickle Cells Target Cells Tear Drop Cells Ovalocytes Stomatocytes Rodriguez[place] Bodies [place] Rings Jj Cells Rouleaux RBC Autoagglutination Schistocytes Total Bilirubin 4.2 H 0.2-1.0 mg/dL Aspartate Amino Transferase (AST) > 6000 H 13-40 U/L Alanine Aminotransferase (ALT) 1638 H 7-40 U/L Alkaline Phosphatase 1055 H 46-116 U/L Total Protein 4.6 L 5.7-8.2 g/dL Albumin 2.2 L 3.2-4.8 g/dL Random Vancomycin Level 27.7 H 5-10 ug/mL Urine Color Yellow Yellow Urine Clarity Turbid H Clear Urine pH 5.0 5.0-9.0 Urine Specific [place] 1.012 1.001-1.035 Urine Protein 1+ H Negative Urine Ketones Trace Negative Urine Blood 3+ H Negative /uL Urine Nitrite Negative Negative Urine Bilirubin Negative Negative Urine Urobilinogen Normal Negative mg/dL Urine Leukocyte Esterase Negative Negative /uL Urine RBC 23 0 - 4 /hpf Urine Microscopic WBC 9 H 0-5 /HPF Urine Squamous Epithelial Cells Few <5 /hpf Urine Bacteria Many H None Seen /hpf Urine Mucus Few None Seen Urine Glucose Trace Normal mg/dL POC Glucose 12 *L 70-106 mg/dl Test 10/04/24 05:48 10/04/24 05:45 10/03/24 18:45 10/03/24 18:40 Range/Units Phosphorus Level 15.2 H 2.4-5.1 mg/dL Magnesium Level 3.1 H 1.6-2.6 mg/dL Lactic Acid Level 15.5 *H 0.4-2.0 mmol/L Ammonia 147 *H 11-32 umol/L Troponin I High Sensitivity 8 </=34 ng/L Test 10/03/24 14:45 10/03/24 14:44 Range/Units Beta HCG, Quantitative 0.7 L 1.5-4.2 mIU/mL B-Type Natriuretic Peptide 157.61 0-100 pg/mL Microbiology Date/Time Source Procedure Growth Status 10/03/24 14:45 Blood Blood Culture - Preliminary Resulted Assessment Septic shock Atrial fibrillation with rapid ventricular response, newly diagnosed Colon cancer with metastasis Thrombocytopenia Acute kidney injury Hyperkalemia Shock liver Plan/Recommendation We will continue with the following plan/recommendations (Dr. Terrazas): Patient seen and examined at bedside with . Transthoracic echocardiogram reveals EF 50-55% with small to moderate size loculated pericardial effusion versus left-sided pleural effusion. The patient remains on multiple vasopressors for hemodynamic support at this time. [id number] VASc score: 1 point. Unable to initiate anticoagulation at this time given severe thrombocytopenia. Unable to initiate beta-beth at this time given that patient is on multiple vasopressors for hemodynamic support. Hypotension secondary to septic shock. Patient was currently DNR/DNI. Consider goals of care with family. Spoke with the patient's family members who are at bedside and are considering withdrawing care. At this time, there is no further inpatient cardiac workup indicated. Please reconsult if needed. Thank you for allowing us to care for this patient. Please call with any questions or concerns. Critical care time spent: 40 minutes This medical document was created using an electronic medical record system with voice recognition software and computerized dictation system. Although this document has been carefully reviewed, there might still be some phonetic and typographical errors. Occasional wrong-word or ``sound-alike substitutions may have occurred due to the inherent limitations of voice recognition software. These areas are purely typographical due to imperfections of the software programs and do not reflect any compromise in the patient's medical care. Please read the chart carefully and recognize, using context, where these substi tutions have occurred. Plan discussed with: Other (Mother in-law at bedside) NYHA Physical activity limitations: NA Date of Service: Oct 04, 2024 Billing Provider: KRISTIN TERRAZAS MD Cardiology Common Codes: 60492-OFECASW INP/OBS CARE (High) Cardiology Consultation Codes: 47916-[id number] CONSULT <45MIN DIEUDONNE DANIEL Oct 04, 2024 12:33
[2024-10-04 12:35] LABS: Blood Urea Nitrogen 85 mg/dL (9-23); Calcium 7.7 mg/dL (8.7-10.4); Carbon Dioxide < 10 mmol/L (20-31); Chloride 87 mmol/L (98-107); Glucose 116 mg/dL (74-106); Potassium 6.1 mmol/L (3.5-5.1)
--- NOTE | 2024-10-04 12:54 | DVHINCON2 ---
GI Consult Consult Note Date of Consultation: October 04, 2024 Chief Complaint: Reason for consultation: Elevation of liver enzymes Referring Physician:Faizan H&P: Patient is an unfortunate 39-year-old female with a history of colon cancer with metastatic liver disease. Patient was admitted with decreased level of consciousness found to have lactic acidosis, acute on chronic renal failure, elevation of liver enzymes going to and decreased level of consciousness. Patient is DNR DNI. Mother is at bedside. Mother is awaiting family members to come and visit as the patient's situation is becoming more dire. Mother requests comfort measures. No GI intervention is warranted at this time. Patient is hypotensive and on IV pressor therapy. Past Medical History: As above Social History: NO smoking, drinking ETOH and use of illegal drugs. Family History: Not relevant Current Medications Medications (Trade) Dose Ordered Sig/Ana Route PRN Reason Start Time Stop Time Status Last Admin Vancomycin HCl 200 ml @ 200 mls/hr Q12HR IV 10/03/24 22:00 10/03/24 18:16 DC Piperacillin Sod/ Tazobactam Sod 100 ml @ 25 mls/hr Q8HR IV 10/03/24 22:00 10/03/24 16:29 DC Piperacillin Sod/ Tazobactam Sod 100 ml @ 25 mls/hr Q12HR IV 10/04/24 00:00 10/04/24 10:29 Norepinephrine Bitartrate 250 ml @ 3.75 mls/hr Q24H IV 10/03/24 17:15 10/03/24 16:02 Vasopressin 20 units/Sodium Chloride 100 ml @ 9 mls/hr Q11H7M IV 10/03/24 17:30 10/04/24 05:10 Vancomycin HCl 0 ml @ 0 mls/hr UD IV 10/03/24 18:30 Famotidine (Pepcid Injection) 20 mg Q2D IV 10/03/24 22:00 10/03/24 23:26 Diagnostic Test (Pha) (Accu-Chek Comfort Curve T) 1 strip IQ4HR 10/03/24 20:00 10/04/24 08:21 DC 10/04/24 05:07 Insulin Human Regular (InsuLIN R) IQ4HR SC 10/03/24 20:00 10/03/24 21:10 Dextrose 50 ml UD PRN IV Blood Sugar LESS THAN 60 10/03/24 20:00 10/04/24 08:21 DC Sodium Chloride (Saline Lock Ns) 10 ml Q8HR IV 10/03/24 22:00 10/04/24 06:06 Ondansetron HCl (Zofran) 4 mg Q4HP PRN IV NAUSEA / VOMITING 10/03/24 20:00 10/04/24 01:11 Docusate Sodium (Colace Capsule) 100 mg BIDPRN PRN PO FOR CONSTIPATION 10/03/24 20:00 Acetaminophen (Tylenol Tablet) 650 mg Q6HP PRN PO PAIN SCALE 1-3 OR TEMP>100.4 10/03/24 20:00 10/03/24 20:18 DC Ibuprofen (Motrin Tablet) 400 mg Q6HP PRN PO PAIN SCALE 1-3 OR TEMP>100.4 10/03/24 20:30 Morphine Sulfate 1 mg Q4HPRN PRN IV PAIN SCALE 7 THRU 10 10/03/24 21:30 10/04/24 01:40 DC 10/04/24 01:11 Nitroglycerin (Ntrostat Sublingual) 0.4 mg Q5MINP PRN SL FOR CHEST PAIN 10/03/24 22:00 Morphine Sulfate 2 mg Q30M PRN IV FOR CHEST PAIN 10/03/24 22:00 Lorazepam (Ativan Inj) 2 mg Q8HPRN PRN IV ANXIETY 10/04/24 01:30 10/04/24 01:49 Morphine Sulfate 4 mg Q2HPRN PRN IV SEVERE PAIN (7-10 PAIN SCALE) 10/04/24 01:30 10/04/24 01:42 DC Morphine Sulfate 4 mg Q2HPRN PRN IV SEVERE PAIN (7-10 PAIN SCALE) 10/04/24 01:45 10/04/24 03:06 DC Phenylephrine HCl 250 ml @ 30 mls/hr Q8H20M IV 10/04/24 02:45 10/04/24 03:26 Morphine Sulfate 2 mg Q2HPRN PRN IV SEVERE PAIN (7-10 PAIN SCALE) 10/04/24 03:00 10/04/24 05:24 DC 10/04/24 04:37 Hydromorphone HCl (Dilaudid Innjection) 0.5 mg Q2HPRN PRN IV PAIN SCALE 7 THRU 10 10/04/24 05:30 10/04/24 06:36 Insulin Human (Reg)/Sodium Chloride 100 ml @ 0.5 mls/hr Q24H IV 10/04/24 07:30 Diagnostic Test (Pha) (Accu-Chek Comfort Curve T) 1 strip Q90MIN 10/04/24 07:30 Dextrose 50 ml PRN PRN IV BG LESS Than 70 AND CALL MD 10/04/24 07:30 10/04/24 09:12 Sodium Bicarbonate 150 ml/Dextrose 1,150 ml @ 100 mls/hr [id number] IV 10/04/24 09:00 10/04/24 09:00 Review of Systems: Review of systems as per HPI Vital Signs Date Time Temp Pulse Resp B/P (MAP) Pulse Ox O2 Delivery O2 Flow Rate FiO2 10/04/24 11:45 100.2 96 20 92/73 (79) 100.2 10/04/24 08:45 66 10/03/24 23:00 Non-Rebreather 15 N/A Physical exam: General: Obtunded HEENT: PERRL, no scleral icterus, normal hearing, gums without lesions or bleeding, oropharynx clear without erythema or exudate. Neck: No masses Heart: RRR, Abdomen: Distended Extremities: no edema, no cyanosis Labs: Laboratory Tests Test 10/03/24 14:44 10/03/24 14:45 10/03/24 16:58 10/03/24 17:57 Range/Units B-Type Natriuretic Peptide 157.61 0-100 pg/mL White Blood Count 8.7 4.4-10.8 10^3/uL Red Blood Count 3.69 L 4.0-5.20 10^6/uL Hemoglobin 12.0 L 12.2-16.2 g/dL Hematocrit 36.3 36.0-46.0 % Mean Corpuscular Volume 98.3 80.0-100.0 fL Mean Corpuscular Hemoglobin 32.5 H 28.0-32.0 pg Mean Corpuscular Hemoglobin Concent 33.0 32.0-36.0 g/dL Red Cell Distribution Width 18.1 H 11.8-14.3 % Platelet Count 97 L 140-450 10^3/uL Mean Platelet Volume 10.3 6.9-10.8 fL Neutrophils (%) (Auto) 37.0-80.0 % Lymphocytes (%) (Auto) 10.0-50.0 % Monocytes (%) (Auto) 0.0-12.0 % Basophils (%) (Auto) 0.0-2.0 % Neutrophils # (Auto) 1.6-8.6 10 ^3/uL Lymphocytes # (Auto) 0.4-5.4 10 ^3/uL Monocytes # (Auto) 0-1.3 10 ^3/uL Differential Total Cells Counted 100.0 100 Neutrophils % (Manual) 90 H 37.0-80.0 Band Neutrophils % (Manual) 0 Lymphocytes % (Manual) 1 L 10.0-50.0 Monocytes % (Manual) 9 0-12 Eosinophils % (Manual) 0 0-7 Basophils % (Manual) 0 0.0-2.0 Metamyelocytes % (manual) 0 Myelocytes % (Manual) 0 Promyelocytes % (Manual) 0 Blast Cells % (Manual) 0 Nucleated Red Blood Cells 3.0 % Reactive Lymphocytes 0 Platelet Estimate Decrea Large Platelets Few Sodium Level 120 L 136-145 mmol/L Potassium Level 3.8 3.5-5.1 mmol/L Chloride Level 85 L 98-107 mmol/L Carbon Dioxide Level < 10 *L 20-31 mmol/L Anion Gap 25.32447 H 5-15 Blood Urea Nitrogen 97 *H 9-23 mg/dL Creatinine 7.83 H 0.550-1.02 mg/dL Glomerular Filtration Rate Calc 6 >90 mL/min BUN/Creatinine Ratio 12.4 10.0-20.0 Serum Glucose 63 L 74-106 mg/dL Lactic Acid Level 14.0 *H 0.4-2.0 mmol/L Calcium Level 9.2 8.7-10.4 mg/dL Total Bilirubin 4.7 H 0.2-1.0 mg/dL Aspartate Amino Transferase (AST) 611 H 13-40 U/L Alanine Aminotransferase (ALT) 290 H 7-40 U/L Alkaline Phosphatase 553 H 46-116 U/L Troponin I High Sensitivity 4 7 </=34 ng/L Total Protein 6.2 5.7-8.2 g/dL Albumin 3.1 L 3.2-4.8 g/dL Beta HCG, Quantitative 0.7 L 1.5-4.2 mIU/mL POC Glucose 183 H 70-106 mg/dl Test 10/03/24 18:40 10/03/24 18:45 10/03/24 21:02 10/04/24 00:22 Range/Units Troponin I High Sensitivity 8 </=34 ng/L Lactic Acid Level 15.5 *H 0.4-2.0 mmol/L Ammonia 147 *H 11-32 umol/L POC Glucose 157 H 122 H 70-106 mg/dl Test 10/04/24 05:07 10/04/24 05:45 10/04/24 05:48 10/04/24 07:24 Range/Units POC Glucose 91 350 H 70-106 mg/dl Phosphorus Level 15.2 H 2.4-5.1 mg/dL Magnesium Level 3.1 H 1.6-2.6 mg/dL Parathyroid Hormone (Intact) Pending Test 10/04/24 07:27 10/04/24 08:00 10/04/24 08:33 10/04/24 09:09 Range/Units POC Glucose 12 *L 70-106 mg/dl Serum Glucose 54 L 26 *L 74-106 mg/dL Urine Color Yellow Yellow Urine Clarity Turbid H Clear Urine pH 5.0 5.0-9.0 Urine Specific [place] 1.012 1.001-1.035 Urine Protein 1+ H Negative Urine Ketones Trace Negative Urine Blood 3+ H Negative /uL Urine Nitrite Negative Negative Urine Bilirubin Negative Negative Urine Urobilinogen Normal Negative mg/dL Urine Leukocyte Esterase Negative Negative /uL Urine RBC 23 0 - 4 /hpf Urine Microscopic WBC 9 H 0-5 /HPF Urine Squamous Epithelial Cells Few <5 /hpf Urine Bacteria Many H None Seen /hpf Urine Mucus Few None Seen Urine Osmolality Pending Urine Creatinine Pending Urine Protein/Creatinine Ratio Pending Urine Sodium Pending Urine Glucose Trace Normal mg/dL Urine Total Protein Pending White Blood Count 15.8 H 4.4-10.8 10^3/uL Red Blood Count 3.08 L 4.0-5.20 10^6/uL Hemoglobin 10.0 L 12.2-16.2 g/dL Hematocrit 31.3 L 36.0-46.0 % Mean Corpuscular Volume 101.6 #H 80.0-100.0 fL Mean Corpuscular Hemoglobin 32.3 H 28.0-32.0 pg Mean Corpuscular Hemoglobin Concent 31.8 L 32.0-36.0 g/dL Red Cell Distribution Width 18.8 H 11.8-14.3 % Platelet Count 21 L 140-450 10^3/uL Mean Platelet Volume 10.4 6.9-10.8 fL Neutrophils (%) (Auto) 37.0-80.0 % Lymphocytes (%) (Auto) 10.0-50.0 % Monocytes (%) (Auto) 0.0-12.0 % Eosinophils (%) (Auto) 0.0-7.0 % Basophils (%) (Auto) 0.0-2.0 % Neutrophils # (Auto) 1.6-8.6 10 ^3/uL Lymphocytes # (Auto) 0.4-5.4 10 ^3/uL Monocytes # (Auto) 0-1.3 10 ^3/uL Eosinophils # (Auto) 0-0.8 10 ^3/uL Basophils # (Auto) 0-0.2 10 ^3/uL Differential Total Cells Counted 100.0 100 Immature Granulocytes % Neutrophils % (Manual) 59 37.0-80.0 Band Neutrophils % (Manual) 22 Lymphocytes % (Manual) 12 10.0-50.0 Monocytes % (Manual) 6 0-12 Eosinophils % (Manual) 0 0-7 Basophils % (Manual) 0 0.0-2.0 Metamyelocytes % (manual) 0 Myelocytes % (Manual) 0 Promyelocytes % (Manual) 0 Blast Cells % (Manual) 0 Plasma Cells % (manual) Nucleated Red Blood Cells % Hypersegmented Neutrophils Reactive Lymphocytes 1 Smudge Cells /100 WBC Toxic Granulation Toxic Vacuolation Dohle Bodies Saima Rods Platelet Estimate Decreased Clumped Platelets Large Platelets Giant Platelets Red Blood Cell Morphology Polychromasia Hypochromasia (manual) Poikilocytosis (manual) Basophilic Stippling Anisocytosis (manual) Microcytosis Slight Macrocytosis Slight Spherocytes Pappenheimer Bodies Sickle Cells Target Cells Tear Drop Cells Ovalocytes Stomatocytes Rodriguez-Bruno Bodies [place] Rings Jj Cells Rouleaux RBC Autoagglutination Schistocytes Sodium Level 121 L 136-145 mmol/L Potassium Level 5.8 #*H 3.5-5.1 mmol/L Chloride Level 88 L 98-107 mmol/L Carbon Dioxide Level < 10 *L 20-31 mmol/L Anion Gap 23.51325 H 5-15 Blood Urea Nitrogen 84 #*H 9-23 mg/dL Creatinine 7.17 H 0.550-1.02 mg/dL Glomerular Filtration Rate Calc 7 >90 mL/min BUN/Creatinine Ratio 11.7 10.0-20.0 Calcium Level 7.9 L 8.7-10.4 mg/dL Total Bilirubin 4.2 H 0.2-1.0 mg/dL Aspartate Amino Transferase (AST) > 6000 H 13-40 U/L Alanine Aminotransferase (ALT) 1638 H 7-40 U/L Alkaline Phosphatase 1055 H 46-116 U/L Total Protein 4.6 L 5.7-8.2 g/dL Albumin 2.2 L 3.2-4.8 g/dL Vitamin D 25-Hydroxy Pending Random Vancomycin Level 27.7 H 5-10 ug/mL Hepatitis B Surface Antigen Pending Hepatitis C Antibody Pending Test 10/04/24 11:40 Range/Units Sodium Level 121 L 136-145 mmol/L Potassium Level 6.1 *H 3.5-5.1 mmol/L Chloride Level 87 L 98-107 mmol/L Carbon Dioxide Level < 10 *L 20-31 mmol/L Anion Gap 24.35846 H 5-15 Blood Urea Nitrogen 85 *H 9-23 mg/dL Creatinine 7.29 H 0.550-1.02 mg/dL Glomerular Filtration Rate Calc 7 >90 mL/min BUN/Creatinine Ratio 11.7 10.0-20.0 Serum Glucose 116 H 74-106 mg/dL Calcium Level 7.7 L 8.7-10.4 mg/dL Assessment: 1. Metastatic colon cancer 2. Liver metastases 3. Transaminitis secondary to shock liver 4. Acute on chronic renal failure 5. Hypertension 6. Lactic acidosis Plan: 1. No GI intervention at this time, mother seems to be requesting comfort care measures stating I just want to keep her comfortable. 2. Pain control and IV fluids 3. No further GI workup at this time is warranted 4. Continue with IV pressor support and IV fluids 5. Keep the patient NPO Date of Service: Oct 04, 2024 Billing Provider: CASPER MARIE MD Common Visit Codes: [id number] INP/OBS CARE (HIGH) CASPER MARIE MD Oct 04, 2024 12:54
[2024-10-04] MEDS: SODIUM BICARB 8.4% 50Meq/50ml SYR Vial IV ONE (12:55)
[2024-10-04] MEDS: FUROSEMIDE 40 MG/4 ML VIAL IV ONE (12:55)
[2024-10-04 12:59] VITALS: O2SAT 97
[2024-10-04] MEDS: ALBUTEROL SULF 2.5 MG/0.5ML(0.5%) NEB SOLN NEB ONE (13:00)
--- NOTE | 2024-10-04 13:32 | DVHPN2 ---
Subjective Lethargic/unresponsive Reviewed: Care Plan, H&P, Labs, Medications, Previous Orders, Radiology, Other (Consultants) Changes from previous H/P or p: No Changes Objective Vitals Vital Signs Date Time Temp Pulse Resp B/P (MAP) Pulse Ox O2 Delivery O2 Flow Rate FiO2 10/04/24 13:00 142/123 10/04/24 12:59 97 Non-Rebreather 15 N/A 10/04/24 11:45 100.2 96 20 100.2 Intake/Output Intake and Output 10/04/24 07:00 Intake Total 3625 ml Balance 3625 ml Intake IV Total 3625 ml General Appearance: Other (Lethargic and unresponsive with agonal breathing) HEENT: Atraumatic Lungs: Other (Crackles both lungs) Cardiovascular: Other (Borderline tachycardia) Abdomen: Soft Medications Current Medications Medications Dose Ordered Sig/Ana Route Start Time Stop Time Status Last Admin Dose Admin Piperacillin Sod/ Tazobactam Sod 100 ml @ 25 mls/hr Q12HR IV 10/04/24 00:00 10/04/24 10:29 25 MLS/HR Norepinephrine Bitartrate 250 ml @ 3.75 mls/hr Q24H IV 10/03/24 17:15 10/03/24 16:02 3.75 MLS/HR Vasopressin 20 units/Sodium Chloride 100 ml @ 9 mls/hr Q11H7M IV 10/03/24 17:30 10/04/24 05:10 9 MLS/HR Vancomycin HCl 0 ml @ 0 mls/hr UD IV 10/03/24 18:30 Famotidine 20 mg Q2D IV 10/03/24 22:00 10/03/24 23:26 20 MG Insulin Human Regular IQ4HR SC 10/03/24 20:00 10/03/24 21:10 2 UNITS Sodium Chloride 10 ml Q8HR IV 10/03/24 22:00 10/04/24 06:06 10 ML Ondansetron HCl 4 mg Q4HP PRN IV 10/03/24 20:00 10/04/24 01:11 4 MG Docusate Sodium 100 mg BIDPRN PRN PO 10/03/24 20:00 Ibuprofen 400 mg Q6HP PRN PO 10/03/24 20:30 Nitroglycerin 0.4 mg Q5MINP PRN SL 10/03/24 22:00 Morphine Sulfate 2 mg Q30M PRN IV 10/03/24 22:00 Lorazepam 2 mg Q8HPRN PRN IV 10/04/24 01:30 10/04/24 01:49 2 MG Phenylephrine HCl 250 ml @ 30 mls/hr Q8H20M IV 10/04/24 02:45 10/04/24 11:05 30 MLS/HR Hydromorphone HCl 0.5 mg Q2HPRN PRN IV 10/04/24 05:30 10/04/24 06:36 0.5 MG Insulin Human (Reg)/Sodium Chloride 100 ml @ 0.5 mls/hr Q24H IV 10/04/24 07:30 Diagnostic Test (Pha) 1 strip Q90MIN 10/04/24 07:30 Dextrose 50 ml PRN PRN IV 10/04/24 07:30 10/04/24 09:12 50 ML Sodium Bicarbonate 150 ml/Dextrose 1,150 ml @ 100 mls/hr [id number] IV 10/04/24 09:00 10/04/24 09:00 100 MLS/HR Laboratory Results Laboratory Tests 10/04/24 09:09 10/04/24 11:40 Chemistry Test 10/03/24 14:45 10/04/24 05:45 10/04/24 09:09 10/04/24 11:40 Albumin 3.1 g/dL (3.2-4.8) L 2.2 g/dL (3.2-4.8) L Calcium Level 9.2 mg/dL (8.7-10.4) 7.9 mg/dL (8.7-10.4) L 7.7 mg/dL (8.7-10.4) L Total Protein 6.2 g/dL (5.7-8.2) 4.6 g/dL (5.7-8.2) L Magnesium Level 3.1 mg/dL (1.6-2.6) H Phosphorus Level 15.2 mg/dL (2.4-5.1) H Cardiac Markers Test 10/03/24 14:44 B-Type Natriuretic Peptide 157.61 pg/mL (0-100) LFT Test 10/03/24 14:45 10/04/24 09:09 Alanine Aminotransferase (ALT) 290 U/L (7-40) H 1638 U/L (7-40) H Alkaline Phosphatase 553 U/L (46-116) H 1055 U/L (46-116) H Aspartate Amino Transferase (AST) 611 U/L (13-40) H > 6000 U/L (13-40) H Total Bilirubin 4.7 mg/dL (0.2-1.0) H 4.2 mg/dL (0.2-1.0) H Urinalysis Test 10/04/24 08:33 Urine Color Yellow (Yellow) Urine Clarity Turbid (Clear) H Urine pH 5.0 (5.0-9.0) Urine Specific [place] 1.012 (1.001-1.035) Urine Protein 1+ (Negative) H Urine Ketones Trace (Negative) Urine Blood 3+ /uL (Negative) H Urine Nitrite Negative (Negative) Urine Bilirubin Negative (Negative) Urine Urobilinogen Normal mg/dL (Negative) Urine Leukocyte Esterase Negative /uL (Negative) Urine RBC 23 /hpf (0 - 4) Urine Microscopic WBC 9 /HPF (0-5) H Urine Squamous Epithelial Cells Few /hpf (<5) Urine Bacteria Many /hpf (None Seen) H Urine Mucus Few (None Seen) Urine Osmolality Pending Urine Creatinine Pending Urine Protein/Creatinine Ratio Pending Urine Sodium Pending Urine Glucose Trace mg/dL (Normal) Urine Total Protein Pending Microbiology Microbiology Date/Time Source Procedure Growth Status 10/03/24 14:45 Blood Blood Culture - Preliminary Resulted Assessment/Plan Assessment/Plan Colon cancer with liver metastasis Hepatic encephalopathy Acute kidney injury Hypoglycemia and hyperglycemia Hyperkalemia Leukocytosis and sepsis AFib with RVR UTI Plan: Patient is moribund. Family waiting at bedside for other family members to arrive. She is DNR DNI. Very poor prognosis. We will treat the potassium at this time give antibiotics in the repeat labs. Total critical care time on the case 40 minutes Plan discussed with: Spouse (And other family members at bedside), Other (Nursing) Date of Service: Oct 04, 2024 Billing Provider: GRZEGORZ JARAMILLO MD Common Visit Codes: [id number] CARE 30-74 MIN GRZEGORZ JARAMILLO MD Oct 04, 2024 13:32
[2024-10-04 13:36] LABS: Protein, Urine 214.7 mg/dL (1-14)
[2024-10-04 13:39] LABS: Creatinine, Urine 64.26 mg/dL (30.0-125.0); Urine Protein/Creatinine Ratio 3.34
--- NOTE | 2024-10-04 13:48 | DVHSR ---
APPROVED REPORT EXAM: Two-dimensional and M-mode echocardiogram with Doppler and color Doppler. Blood Pressure: 89/17 mmHg INDICATION Hypotension RISK FACTORS Height: 5' 7", Weight: 180 DIMENSIONS LVDd4.3 (3.8-5.7cm)LA (2D)3.4 (1.9-4.0cm)Aortic Root2.9 (2.0-3.7cm) LVDs3.4 (2.5-4.0cm)LA (MM) (1.9-4.0cm)Aortic Cusp Exc1.7 (1.5-2.0cm) EF (%) 55.0 (55-70%)Rt. Atrium3.0 (1.9-4.0cm)Asc. Aorta cm IVSd1.1 (0.7-1.1cm)RV (D) (1.8-2.4cm) PWd1.0 (0.7-1.1cm) Mitral Valve MitralMitral Stenosis E wave0.50m/sMV Mean GR.mmHg A wave0.60m/sMV Peak GR.mmHg E/A ratio0.82D MVAcm2 Aortic Valve Aortic ValveAortic Stenosis V11.10m/Nuria Mean GR.3mmHg V21.10m/Nuria Peak GR.5mmHg LVOT Diameter2.0 (1.8-2.4cm)Doppler AVA3.14cm2 LEFT VENTRICLE The left ventricle is of normal size. Wall thickness is normal. Ejection fraction is normal and is estimated at 50-55%. There is no regional wall motion abnormalities but endocardial definition is jones boptimal. Diastolic function is preserved. RIGHT VENTRICLE The right ventricle is of normal size. Systolic function is normal. ATRIA Both atria are of normal size. MITRAL VALVE Normal structure and function. No significant mitral regurgitation. PULMONIC VALVE Likely normal. TRICUSPID VALVE Normal in structure and function. There is mild tricuspid regurgitation. PA systolic pressure isn't adequately estimated. AORTIC VALVE Normal structure and function. GREAT VESSELS The aortic root is of normal size. PERICARDIAL EFFUSION There is possible small to moderate-sized loculated effusion in the posterior wall of the left ventri mely versus left-sided pleural effusion. The IVC is not visualized. Conclusion The study is technically limited. Normal left ventricular size and systolic function. Ejection fraction is estimated at 50-55%. Normal right ventricular size and systolic function. No hemodynamically significant valvular disease. PA systolic pressure is not adequately estimated. There is small to moderate-sized loculated pericardial effusion around the posterior wall of the left ventricle versus left-sided pleural effusion.
--- NOTE | 2024-10-04 14:43 | DVHDS2 ---
Summary Date of Admission Oct 03, 2024 at 21:48 Date and Time of Expiration: Oct 04, 2024 14:07 Reason for Admission: ALOC Wounds: NONE Labs/Diagnostic Data: Laboratory Results Test 10/04/24 11:40 10/04/24 09:09 10/04/24 08:33 10/04/24 07:27 Sodium Level 121 mmol/L (136-145) Potassium Level 6.1 mmol/L (3.5-5.1) Chloride Level 87 mmol/L (98-107) Carbon Dioxide Level < 10 mmol/L (20-31) Anion Gap 24.88359 (5-15) Blood Urea Nitrogen 85 mg/dL (9-23) Creatinine 7.29 mg/dL (0.550-1.02) Glomerular Filtration Rate Calc 7 mL/min (>90) BUN/Creatinine Ratio 11.7 (10.0-20.0) Serum Glucose 116 mg/dL (74-106) Calcium Level 7.7 mg/dL (8.7-10.4) White Blood Count 15.8 10^3/uL (4.4-10.8) Red Blood Count 3.08 10^6/uL (4.0-5.20) Hemoglobin 10.0 g/dL (12.2-16.2) Hematocrit 31.3 % (36.0-46.0) Mean Corpuscular Volume 101.6 fL (80.0-100.0) Mean Corpuscular Hemoglobin 32.3 pg (28.0-32.0) Mean Corpuscular Hemoglobin Concent 31.8 g/dL (32.0-36.0) Red Cell Distribution Width 18.8 % (11.8-14.3) Platelet Count 21 10^3/uL (140-450) Mean Platelet Volume 10.4 fL (6.9-10.8) Neutrophils (%) (Auto) % (37.0-80.0) Lymphocytes (%) (Auto) % (10.0-50.0) Monocytes (%) (Auto) % (0.0-12.0) Eosinophils (%) (Auto) % (0.0-7.0) Basophils (%) (Auto) % (0.0-2.0) Neutrophils # (Auto) 10 ^3/uL (1.6-8.6) Lymphocytes # (Auto) 10 ^3/uL (0.4-5.4) Monocytes # (Auto) 10 ^3/uL (0-1.3) Eosinophils # (Auto) 10 ^3/uL (0-0.8) Basophils # (Auto) 10 ^3/uL (0-0.2) Differential Total Cells Counted 100.0 (100) Immature Granulocytes % Neutrophils % (Manual) 59 (37.0-80.0) Band Neutrophils % (Manual) 22 Lymphocytes % (Manual) 12 (10.0-50.0) Monocytes % (Manual) 6 (0-12) Eosinophils % (Manual) 0 (0-7) Basophils % (Manual) 0 (0.0-2.0) Metamyelocytes % (manual) 0 Myelocytes % (Manual) 0 Promyelocytes % (Manual) 0 Blast Cells % (Manual) 0 Plasma Cells % (manual) Nucleated Red Blood Cells % Hypersegmented Neutrophils Reactive Lymphocytes 1 Smudge Cells /100 WBC Toxic Granulation Toxic Vacuolation Dohle Bodies Saima Rods Platelet Estimate Decreased Clumped Platelets Large Platelets Giant Platelets Red Blood Cell Morphology Polychromasia Hypochromasia (manual) Poikilocytosis (manual) Basophilic Stippling Anisocytosis (manual) Microcytosis Slight Macrocytosis Slight Spherocytes Pappenheimer Bodies Sickle Cells Target Cells Tear Drop Cells Ovalocytes Stomatocytes Rodriguez-[place] Bodies [place] Rings [place] Cells Rouleaux RBC Autoagglutination Schistocytes Total Bilirubin 4.2 mg/dL (0.2-1.0) Aspartate Amino Transferase (AST) > 6000 U/L (13-40) Alanine Aminotransferase (ALT) 1638 U/L (7-40) Alkaline Phosphatase 1055 U/L (46-116) Total Protein 4.6 g/dL (5.7-8.2) Albumin 2.2 g/dL (3.2-4.8) Random Vancomycin Level 27.7 ug/mL (5-10) Urine Color Yellow (Yellow) Urine Clarity Turbid (Clear) Urine pH 5.0 (5.0-9.0) Urine Specific [place] 1.012 (1.001-1.035) Urine Protein 1+ (Negative) Urine Ketones Trace (Negative) Urine Blood 3+ /uL (Negative) Urine Nitrite Negative (Negative) Urine Bilirubin Negative (Negative) Urine Urobilinogen Normal mg/dL (Negative) Urine Leukocyte Esterase Negative /uL (Negative) Urine RBC 23 /hpf (0 - 4) Urine Microscopic WBC 9 /HPF (0-5) Urine Squamous Epithelial Cells Few /hpf (<5) Urine Bacteria Many /hpf (None Seen) Urine Mucus Few (None Seen) Urine Osmolality 308 mOsm/kg Urine Creatinine 64.26 mg/dL (30.0-125.0) Urine Protein/Creatinine Ratio 3.34 Urine Sodium 55 mmol/L (40-220) Urine Glucose Trace mg/dL (Normal) Urine Total Protein 214.7 mg/dL (1-14) POC Glucose 12 mg/dl (70-106) Test 10/04/24 05:48 10/04/24 05:45 10/03/24 18:45 10/03/24 18:40 Phosphorus Level 15.2 mg/dL (2.4-5.1) Magnesium Level 3.1 mg/dL (1.6-2.6) Lactic Acid Level 15.5 mmol/L (0.4-2.0) Ammonia 147 umol/L (11-32) Troponin I High Sensitivity 8 ng/L (</=34) Test 10/03/24 14:45 10/03/24 14:44 Beta HCG, Quantitative 0.7 mIU/mL (1.5-4.2) B-Type Natriuretic Peptide 157.61 pg/mL (0-100) Other Laboratory Tests 10/04/24 11:40 10/04/24 09:09 Final Diagnosis/Problems List Cardiac arrest Secondary Diagnosis: Organ failure secondary to stage IV colon cancer Discharge Disposition: at Hospital I personally scribed for TAQUERIA LOJA MD ([email or web address]) on 10/04/24 at 14:43. Electronically submitted by Lyle Estrada ([email or web address]). TAQUERIA LOJA MD Oct 04, 2024 14:43
[2024-10-04 17:15] VITALS: BP 0/0
[2024-10-06 09:01] LABS: Hepatitis B Surface Antigen Negative (Negative)
[2024-10-06 09:17] LABS: Hepatitis C Antibody Negative (Negative)
--- NOTE | 2024-10-09 10:19 | ECG ---
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
--- NOTE | 2024-10-21 12:59 | DVHDS2 ---
Discharge Summary Date of Admission Oct 03, 2024 at 21:48 Date of Discharge: Oct 04, 2024 Admitting Diagnosis Hepatic encephalopathy Labs/Diagnostic Data: Laboratory Results Test 10/04/24 11:40 10/04/24 09:09 10/04/24 08:33 10/04/24 07:27 Sodium Level 121 mmol/L (136-145) Potassium Level 6.1 mmol/L (3.5-5.1) Chloride Level 87 mmol/L (98-107) Carbon Dioxide Level < 10 mmol/L (20-31) Anion Gap 24.78396 (5-15) Blood Urea Nitrogen 85 mg/dL (9-23) Creatinine 7.29 mg/dL (0.550-1.02) Glomerular Filtration Rate Calc 7 mL/min (>90) BUN/Creatinine Ratio 11.7 (10.0-20.0) Serum Glucose 116 mg/dL (74-106) Calcium Level 7.7 mg/dL (8.7-10.4) White Blood Count 15.8 10^3/uL (4.4-10.8) Red Blood Count 3.08 10^6/uL (4.0-5.20) Hemoglobin 10.0 g/dL (12.2-16.2) Hematocrit 31.3 % (36.0-46.0) Mean Corpuscular Volume 101.6 fL (80.0-100.0) Mean Corpuscular Hemoglobin 32.3 pg (28.0-32.0) Mean Corpuscular Hemoglobin Concent 31.8 g/dL (32.0-36.0) Red Cell Distribution Width 18.8 % (11.8-14.3) Platelet Count 21 10^3/uL (140-450) Mean Platelet Volume 10.4 fL (6.9-10.8) Neutrophils (%) (Auto) % (37.0-80.0) Lymphocytes (%) (Auto) % (10.0-50.0) Monocytes (%) (Auto) % (0.0-12.0) Basophils (%) (Auto) % (0.0-2.0) Neutrophils # (Auto) 10 ^3/uL (1.6-8.6) Lymphocytes # (Auto) 10 ^3/uL (0.4-5.4) Monocytes # (Auto) 10 ^3/uL (0-1.3) Differential Total Cells Counted 100.0 (100) Neutrophils % (Manual) 59 (37.0-80.0) Band Neutrophils % (Manual) 22 Lymphocytes % (Manual) 12 (10.0-50.0) Monocytes % (Manual) 6 (0-12) Eosinophils % (Manual) 0 (0-7) Basophils % (Manual) 0 (0.0-2.0) Metamyelocytes % (manual) 0 Myelocytes % (Manual) 0 Promyelocytes % (Manual) 0 Blast Cells % (Manual) 0 Reactive Lymphocytes 1 Platelet Estimate Decreased Microcytosis Slight Macrocytosis Slight Total Bilirubin 4.2 mg/dL (0.2-1.0) Aspartate Amino Transferase (AST) > 6000 U/L (13-40) Alanine Aminotransferase (ALT) 1638 U/L (7-40) Alkaline Phosphatase 1055 U/L (46-116) Total Protein 4.6 g/dL (5.7-8.2) Albumin 2.2 g/dL (3.2-4.8) Vitamin D 25-Hydroxy 37.9 ng/mL (30.0-100) Random Vancomycin Level 27.7 ug/mL (5-10) Hepatitis B Surface Antigen Negative (Negative) Hepatitis C Antibody Negative (Negative) Urine Color Yellow (Yellow) Urine Clarity Turbid (Clear) Urine pH 5.0 (5.0-9.0) Urine Specific [place] 1.012 (1.001-1.035) Urine Protein 1+ (Negative) Urine Ketones Trace (Negative) Urine Blood 3+ /uL (Negative) Urine Nitrite Negative (Negative) Urine Bilirubin Negative (Negative) Urine Urobilinogen Normal mg/dL (Negative) Urine Leukocyte Esterase Negative /uL (Negative) Urine RBC 23 /hpf (0 - 4) Urine Microscopic WBC 9 /HPF (0-5) Urine Squamous Epithelial Cells Few /hpf (<5) Urine Bacteria Many /hpf (None Seen) Urine Mucus Few (None Seen) Urine Osmolality 308 mOsm/kg Urine Creatinine 64.26 mg/dL (30.0-125.0) Urine Protein/Creatinine Ratio 3.34 Urine Sodium 55 mmol/L (40-220) Urine Glucose Trace mg/dL (Normal) Urine Total Protein 214.7 mg/dL (1-14) POC Glucose 12 mg/dl (70-106) Test 10/04/24 05:48 10/04/24 05:45 10/03/24 18:45 10/03/24 18:40 Parathyroid Hormone (Intact) 401.1 pg/mL (18.4-80.1) Phosphorus Level 15.2 mg/dL (2.4-5.1) Magnesium Level 3.1 mg/dL (1.6-2.6) Lactic Acid Level 15.5 mmol/L (0.4-2.0) Ammonia 147 umol/L (11-32) Troponin I High Sensitivity 8 ng/L (</=34) Test 10/03/24 14:45 10/03/24 14:44 Nucleated Red Blood Cells 3.0 % Large Platelets Few Beta HCG, Quantitative 0.7 mIU/mL (1.5-4.2) B-Type Natriuretic Peptide 157.61 pg/mL (0-100) Other Laboratory Tests 10/04/24 11:40 10/04/24 09:09 Brief Hx & Hospital Course: 39-year-old lady with end-stage colon cancer with liver metastasis admitted to the hospital through the emergency room with hepatic encephalopathy. Patient was moribund. She was DNR and DNI. Family at bedside did not want any heroic measures and they were waiting for other family members to arrive before the patient expires. Her alk-phos and other liver function tests were elevated. Her white count was 15.8. The ammonia level was 147. Patient had cardiac arrest and she . Condition at Discharge: Poor Final Diagnosis/Problems List Cardiac arrest Discharge Disposition: at Hospital Discharge Instruct/Medications Diet: See Comment () Diet comment: Activity: Activity comment: Follow Up/Referral: Medications: ASSESSMENT ASSESSMENT Assessment Cardiac arrest Date of Service: Oct 04, 2024 Billing Provider: GRZEGORZ JARAMILLO MD Common Visit Codes: 28391-PPM/OBS DISCH DAY <30MIN GRZEGORZ JARAMILLO MD Oct 21, 2024 12:59
== END 2024-10-04 14:50 | DRG 720 ==
LOC: ER 13:48 → EDBD 13:48 → OVERFLOW 21:48
PROVIDERS: ADMIT Nurse Practitioner Family; ATTEND Nurse Practitioner Family
DX: A41.9 Sepsis, unspecified organism (principal); K72.00 Acute and subacute hepatic failure without coma; R65.21 Severe sepsis with septic shock; E87.20 Acidosis, unspecified; D69.6 Thrombocytopenia, unspecified; K76.82 Hepatic encephalopathy; C78.7 Secondary malignant neoplasm of liver and intrahepatic bile duct; E87.1 Hypo-osmolality and hyponatremia; I46.9 Cardiac arrest, cause unspecified; N17.9 Acute kidney failure, unspecified; C18.9 Malignant neoplasm of colon, unspecified; E87.5 Hyperkalemia; N39.0 Urinary tract infection, site not specified; N18.9 Chronic kidney disease, unspecified; F17.200 Nicotine dependence, unspecified, uncomplicated; Z66 Do not resuscitate; E16.2 Hypoglycemia, unspecified; I12.9 Hypertensive chronic kidney disease with stage 1 through stage 4 chronic kidney disease, or unspecified chronic kidney disease; Z93.3 Colostomy status; I48.20 Chronic atrial fibrillation, unspecified
CPT/HCPCS: 36415; 70450; 76775; 80048; 80053; 80202; 81001; 82140; 82306; 82570; 82947; 82962; 83605; 83735; 83880; 83935; 83970; 84100; 84156; 84300; 84484; 84702; 85007; 85027; 86803; 87040; 87077; 87086; 87186; 87340; 93005; 93306; 94640; 99291; 99292; G0378; J0131; J1815; J2405; J2543; J3490